=== PATIENT | male | born 1965 | race Caucasian/White ===

== ENCOUNTER 2017-10-24 17:13 | Emergency (ER) | payer BC ==
[2017-10-24 18:38] LABS: ABS Basophils 0.1 10^3/ul (0-0.2); ABS Eosinophils 0.2 10^3/ul (0-0.6); ABS Lymphocytes 1.1 10^3/ul (1.0-4.8); ABS Neutrophils 4.3 10^3/ul (1.5-7.7); ABS Nucleated RBC 0 10^3/ul; Hematocrit 45 % (42-52); Hemoglobin 15.5 g/dl (14.0-18.0); Lymphocyte % 16.7 % (25-47); Mean Corpuscular HGB Conc 34 g/dl (31-36); Mean Corpuscular Hemoglobin 36 pg (27-31); Mean Corpuscular Volume 104 fL (80-94); Mean Platelet Volume 6.6 um3 (7.4-10.4); Nucleated Red Blood Cells % 0; Platelet Count 209 10^3/ul (150-450); Red Blood Count 4.37 10^6/ul (4.0-5.4); Red Cell Distribution Width 14 % (10.5-15); White Blood Count 6.7 10^3/ul (3.5-10.8)
[2017-10-24 18:49] LABS: INR 0.97 (0.77-1.02)
[2017-10-24 18:57] LABS: EGFR Non-African American 87.5 (>60)
[2017-10-24] MEDS ORDERED: Rivaroxaban TAB(*) 15 MG PO ONE (19:19)
--- NOTE | 2017-10-24 19:28 | ED ---
Jerson Sepulveda Stephanie, scribed for Ceasar Subramanian MD on 10/24/17 at 1853 . Lower Extremity - HPI Summary HPI Summary: The pt is a 52 y/o M presenting to the ED with c/o bilateral LE edema that began a few months ago. Symptoms include bilateral LE erythema. He denies SOB, CP and abd pain. The pt states he has had chronic L ankle problems. - History of Current Complaint Chief Complaint: EDExtremityLower Stated Complaint: SWELLING OF BOTH LEGS Time Seen by Provider: 10/24/17 18:32 Hx Obtained From: Patient Onset/Duration: Still Present Severity Currently: Mild Pain Intensity: 0 Pain Scale Used: 0-10 Numeric Timing: Constant Location: Is Discrete @ - LE bilaterally Associated Signs And Symptoms: Positive: Swelling, Redness. Negative: Abdominal Pain Aggravating Factor(s): Nothing Alleviating Factor(s): Nothing Able to Bear Weight: Yes - Allergies/Home Medications Allergies/Adverse Reactions: Allergies Allergy/AdvReac Type Severity Reaction Status Date / Time No Known Allergies Allergy Verified 10/24/17 17:18 PMH/Surg Hx/FS Hx/Imm Hx Endocrine/Hematology History: Denies: Hx Diabetes Cardiovascular History: Reports: Hx Hypertension Denies: Hx Congestive Heart Failure History: Denies: Hx Renal Disease Sensory History: Reports: Hx Contacts or Glasses Opthamlomology History: Reports: Hx Contacts or Glasses EENT History: Denies: Hx Deafness - Surgical History Surgery Procedure, Year, and Place: NONE Infectious Disease History: No Infectious Disease History: Denies: Traveled Outside the [place] in Last 30 Days - Family History Known Family History: Negative: Renal Disease - Social History Occupation: Employed Part-time Lives: Alone Alcohol Use: Occasionally Hx Substance Use: No Substance Use Type: Reports: None Hx Tobacco Use: No Smoking Status (MU): Never Smoked Tobacco Have You Smoked in the Last Year: No Review of Systems Negative: Fever Negative: Chest Pain Negative: Shortness Of Breath Negative: Abdominal Pain Positive: Edema - bilateral LE Positive: Other - bilateral LE erythema All Other Systems Reviewed And Are Negative: Yes Physical Exam - Summary Physical Exam Summary: General: well-appearing, no pain distress Skin: warm, bilateral LE erythema, dry Head: normal Eyes: EOMI, DEANGELO ENT: normal Neck: supple, nontender Respiratory: CTA, breath sounds present Cardiovascular: RRR Abdomen: soft, nontender Bowel: present Musculoskeletal: strength/ROM intact, bilateral pedal edema Neurological: normal, sensory/motor intact, A&O x3 Psychological: affect/mood appropriate Triage Information Reviewed: Yes Vital Signs On Initial Exam: Initial Vitals Temp Pulse Resp BP Pulse Ox 98.1 F 87 16 176/117 97 10/24/17 17:15 10/24/17 17:15 10/24/17 17:15 10/24/17 17:15 10/24/17 17:15 Vital Signs Reviewed: Yes Diagnostics - Vital Signs Vital Signs Temp Pulse Resp BP Pulse Ox 10/24/17 17:15 98.1 F 87 16 176/117 97 - Laboratory Lab Results: Lab Results 10/24/17 Range/Units 18:31 WBC 6.7 (3.5-10.8) 10^3/ul RBC 4.37 (4.0-5.4) 10^6/ul Hgb 15.5 (14.0-18.0) g/dl Hct 45 (42-52) % MCV 104 H (80-94) fL MCH 36 H (27-31) pg MCHC 34 (31-36) g/dl RDW 14 (10.5-15) % Plt Count 209 (150-450) 10^3/ul MPV 6.6 L (7.4-10.4) um3 Neut % (Auto) 63.7 (38-83) % Lymph % (Auto) 16.7 L (25-47) % Dundy % (Auto) 15.7 H (0-7) % Eos % (Auto) 3.0 (0-6) % Baso % (Auto) 0.9 (0-2) % Absolute Neuts (auto) 4.3 (1.5-7.7) 10^3/ul Absolute Lymphs (auto) 1.1 (1.0-4.8) 10^3/ul Absolute Monos (auto) 1.0 H (0-0.8) 10^3/ul Absolute Eos (auto) 0.2 (0-0.6) 10^3/ul Absolute Basos (auto) 0.1 (0-0.2) 10^3/ul Absolute Nucleated RBC 0 10^3/ul Nucleated RBC % 0 Result Diagrams: 10/24/17 18:31 10/24/17 18:31 Lab Statement: Any lab studies that have been ordered have been reviewed, and results considered in the medical decision making process. Lower Extremity Course/Dx - Course Course Of Treatment: DISCUSSED RESULTS WITH THE PATIENT. HE WAS ON XARELTO IN THE PAST. WE DISCUSSED CTA CHEST. THE PATIENT DECLINED. HE HAS NO CHEST PAIN AND DENIES SOB. HR IN THE 90'S. F/U PMD; RETURN IF WORSE. - Diagnoses Provider Diagnoses: DVT (deep venous thrombosis) Discharge - Sign-Out/Discharge Documenting (check all that apply): Discharge/Admit/Transfer - Discharge Plan Condition: Stable Disposition: HOME Prescriptions: Rivaroxaban TAB(*) [Xarelto 15 mg(*)] 15 mg PO BID #41 tab Patient Education Materials: Deep Vein Thrombosis (ED) Referrals: Daljit Ortega MD [Primary Care Provider] - Additional Instructions: FOLLOW UP WITH YOUR PRIMARY CARE DOCTOR TOMORROW. RETURN TO THE EMERGENCY DEPARTMENT FOR ANY WORSENING OF YOUR CONDITION; CHEST PAIN, SHORTNESS OF BREATH, FEVER, YOU FEEL ILL OR QUESTIONS OR CONCERNS. - Billing Disposition and Condition Condition: STABLE Disposition: HOME The documentation as recorded by the Jerson mckinnon Stephanie accurately reflects the service I personally performed and the decisions made by me, Ceasar Subramanian MD.
[2017-10-24 19:35] VITALS: BP 171/110
== END 2017-10-24 19:45 | disposition home or self-care (01) ==
LOC: ED 17:13
DX: I82.403 Acute embolism and thrombosis of unspecified deep veins of lower extremity, bilateral (principal); L53.9 Erythematous condition, unspecified; I10 Essential (primary) hypertension
CPT/HCPCS: 36415; 80053; 85025; 85610; 85730; 99283

== ENCOUNTER 2017-11-15 14:36 | Emergency (ER) | payer BC ==
[2017-11-15 15:03] VITALS: BP 157/102
--- NOTE | 2017-11-15 16:21 | UC ---
Cinthya Sepulveda Emily, scribed for Ceasar Subramanian MD on 11/15/17 at 1540 . Lower Extremity/Ankle HPI - HPI Summary HPI Summary: This patient is a 52 year old M presenting to urgent care with a chief complaint of bilateral lower extremity edema that is chronic but worsened significantly this afternoon [employer]. The patient rates the pain 0/10 in severity. Symptoms aggravated by nothing. Symptoms alleviated by nothing. Patient reports elevated blood pressure and fluid discharge from the skin on the bilateral lower legs. Patient denies SOB, CP, abd pain, urinary symptoms, and bowel symptoms. Pt reports a history of blood clots in both lower extremities, and is currently on Xarelto for these. Medications reviewed. Allergies reviewed. - History of Current Complaint Chief Complaint: UCGeneralIllness Stated Complaint: HIGH BLOOD PRESSURE Time Seen by Provider: 11/15/17 15:08 Hx Obtained From: Patient Onset/Duration: Sudden Onset, Lasting Hours, Still Present Severity Initially: Mild Severity Currently: Mild Pain Intensity: 0 Pain Scale Used: 0-10 Numeric Aggravating Factor(s): Nothing Alleviating Factor(s): Nothing Able to Bear Weight: Yes - Allergies/Home Medications Allergies/Adverse Reactions: Allergies Allergy/AdvReac Type Severity Reaction Status Date / Time No Known Allergies Allergy Verified 11/15/17 14:38 Home Medications: Home Medications Rivaroxaban TAB(*) [Xarelto 15 mg(*)] 20 mg PO BID 11/15/17 [History Confirmed 11/15/17] PMH/Surg Hx/FS Hx/Imm Hx Previously Healthy: No Cardiovascular History: Deep Vein Thrombosis GI/ History: Other Other GI/ History: Negative renal disease - Surgical History Surgical History: None Surgery Procedure, Year, and Place: NONE - Family History Known Family History: Negative: Renal Disease - Social History Occupation: Employed Full-time Lives: Alone Alcohol Use: Weekly Substance Use Type: None Smoking Status (MU): Never Smoked Tobacco Have You Smoked in the Last Year: No - Immunization History Most Recent Influenza Vaccination: NEVER Most Recent Tetanus Shot: UNSURE Most Recent Pneumonia Vaccination: NEVER Review of Systems Skin: Other - Positive fluid discharge from skin on bilateral lower legs Respiratory: Other - Negative SOB Cardiovascular: Other - Positive elevated BP. Negative CP Gastrointestinal: Other - Negative abd pain and bowel symptoms Genitourinary: Negative Musculoskeletal: Edema All Other Systems Reviewed And Are Negative: Yes Physical Exam - Summary Physical Exam Summary: General: well-appearing, no pain distress Skin: warm, color reflects adequate perfusion. Clear fluid leakage from the left leg. Erythema both lower legs. Head: normal Eyes: EOMI, DEANGELO ENT: normal Neck: supple, nontender Respiratory: CTA, breath sounds present Cardiovascular: RRR Abdomen: soft, nontender Bowel: present Musculoskeletal: Bilateral pedal edema, left worse than right Neurological: sensory/motor intact, A&O x3. Mild baseline tremor in both Psychological: affect/mood appropriate Triage Information Reviewed: Yes Vital Signs: Initial Vital Signs Temp 98.1 F 11/15/17 14:39 Pulse 96 11/15/17 14:39 Resp 18 11/15/17 14:39 BP 171/109 11/15/17 14:39 Pulse Ox 99 11/15/17 14:39 Vital Signs Reviewed: Yes Re-Evaluation - Re-Evaluation First Eval Re-Evaluation Time: 15:21 Change: Unchanged Comment: Discussed plan of care with the patient Lower Extremity Course/Dx - Course Course Of Treatment: PATIENT REPORTS THE B/L PEDAL EDEMA HAS GREATLY INCREASED OVER THE LAST FEW HOURS. IT IS WEEPING. TO FULLY EVALUATE KIDNEY AND LIVER FUNCTION AND FOR A TIMELY EVALUATION, I RECOMMENDED THE PATIENT GO [facility] EMERGENCY [facility]PART[facility] FOR FURTHER EVALUATION AND CARE. HE AGREED AND WILL DRIVE HIMSELF. - Differential Dx/Diagnosis Provider Diagnoses: EDEMA. HYPERTENSION Discharge - Sign-Out/Discharge Documenting (check all that apply): Discharge/Admit/Transfer - TO GO DIRECTLY TO THE EMERGENCY DEPARTMENT - Discharge Plan Condition: Stable Disposition: HOME Patient Education Materials: Leg Edema (ED), Hypertension (ED) Referrals: Daljit Ortega MD [Primary Care Provider] - Additional Instructions: GO DIRECTLY TO THE EMERGENCY DEPARTMENT FOR FURTHER EVALUATION OF YOUR WORSENING PEDAL EDEMA AND HYPERTENSION. - Billing Disposition and Condition Condition: STABLE Disposition: HOME The documentation as recorded by the Cinthya mckinnon Emily accurately reflects the service I personally performed and the decisions made by me, Ceasar Subramanian MD.
== END 2017-11-15 15:25 | disposition home or self-care (01) ==
LOC: UCEAST 14:36
DX: I10 Essential (primary) hypertension (principal); R60.9 Edema, unspecified; Z79.01 Long term (current) use of anticoagulants; Z86.718 Personal history of other venous thrombosis and embolism
CPT/HCPCS: 99212; G0463

== ENCOUNTER 2017-11-15 15:51 | Emergency (ER) | payer BC ==
[2017-11-15] MEDS ORDERED: Labetalol IV* 5 MG/ML 20 ML VIAL IV PUSH ONE ×2 (17:55→20:29)
--- NOTE | 2017-11-15 18:23 | RAD ---
HISTORY: Hypertension COMPARISONS: None relevant VIEWS: 1: frontal portable view of the chest at 6:10 PM FINDINGS: LINES AND TUBES: None. CARDIOMEDIASTINAL SILHOUETTE: The cardiomediastinal silhouette is normal for portable technique. PLEURA: The costophrenic angles are sharp. No pleural abnormalities are noted. LUNG PARENCHYMA: The lungs are clear. ABDOMEN: The upper abdomen is clear. There is no subphrenic gas. BONES AND SOFT TISSUES: No bone or soft tissue abnormalities are noted. IMPRESSION: NO ACTIVE CARDIOPULMONARY DISEASE.
[2017-11-15 18:49] LABS: Hematocrit 45 % (42-52); Hemoglobin 16.3 g/dl (14.0-18.0); Mean Corpuscular HGB Conc 37 g/dl (31-36); Mean Corpuscular Hemoglobin 38 pg (27-31); Mean Corpuscular Volume 104 fL (80-94); Mean Platelet Volume 8.5 um3 (7.4-10.4); Platelet Count 129 10^3/ul (150-450); Red Blood Count 4.27 10^6/ul (4.0-5.4); Red Cell Distribution Width 15 % (10.5-15); White Blood Count 10.7 10^3/ul (3.5-10.8)
[2017-11-15] MEDS ORDERED: Furosemide IV* 10 MG/ML VIAL (40 MG) IV SLOW PU ONE (19:30)
[2017-11-15 20:26] VITALS: BP 171/113
[2017-11-15 20:30] LABS: EGFR Non-African American 90.9 (>60)
[2017-11-15 20:43] LABS: Urine Appearance Clear; Urine Blood Negative (Negative); Urine Color Yellow; Urine Ketones Negative (Negative); Urine Protein Negative (Negative); Urine Urobilinogen Negative (Negative)
[2017-11-16 09:10] LABS: Monocytes % 4 % (0-7)
--- NOTE | 2017-11-16 21:08 | ED ---
Catherine Sepulveda Rebecca, scribed for Tez Guaman MD on 11/15/17 at 1801 . Hypertension - HPI Summary HPI Summary: Pt is a 52 y/o M referred from [facility] who presents to ED c/o acute on chronic bilateral LE edema and elevated BP. Pt reports that upon waking up, he was asymptomatic. Throughout the course of the day, beginning at 0900, his legs gradually began to swell. Upon noticing it, he took his BP which was 189/112. Denies CP, SOB, N/V, ANGULO, dizziness. Notes that his legs are chronically swollen as a result of chronic DVT, but this is worse than usual. PMHx HTN - not on medication. Is on Xarelto. - History of Current Complaint Chief Complaint: EDHypertension Stated Complaint: HIGH BP Time Seen by Provider: 11/15/17 17:55 Hx Obtained From: Patient Onset/Duration: Started Hours Ago, Still Present Aggravating Factor(s): Nothing Alleviating Factor(s): Nothing Associated Signs & Symptoms: Other: - Bilateral edema - Allergies/Home Medications Allergies/Adverse Reactions: Allergies Allergy/AdvReac Type Severity Reaction Status Date / Time No Known Allergies Allergy Verified 11/15/17 14:38 Home Medications: Home Medications Rivaroxaban TAB(*) [Xarelto 20 mg] 20 mg PO BID 11/15/17 [History Confirmed ] PMH/Surg Hx/FS Hx/Imm Hx Endocrine/Hematology History: Denies: Hx Diabetes Cardiovascular History: Reports: Hx Deep Vein Thrombosis, Hx Hypertension - hx, was taken off meds Denies: Hx Congestive Heart Failure History: Denies: Hx Renal Disease Sensory History: Reports: Hx Contacts or Glasses Denies: Hx Deafness Opthamlomology History: Reports: Hx Contacts or Glasses - Surgical History Surgery Procedure, Year, and Place: NONE Infectious Disease History: No Infectious Disease History: Denies: Traveled Outside the [place] in Last 30 Days - Family History Known Family History: Negative: Renal Disease - Social History Alcohol Use: Weekly Hx Substance Use: No Substance Use Type: Reports: None Hx Tobacco Use: No Smoking Status (MU): Never Smoked Tobacco Have You Smoked in the Last Year: No Review of Systems Positive: Other - Elevated BP Negative: Chest Pain Negative: Shortness Of Breath Negative: Vomiting, Nausea Positive: Edema Neurological: Other - NEGATIVE: Dizziness Negative: Headache All Other Systems Reviewed And Are Negative: Yes Physical Exam - Summary Physical Exam Summary: VITAL SIGNS: Reviewed. GENERAL: Patient is a well-developed and nourished male who is lying comfortable in the stretcher. Patient is not in any acute respiratory distress. HEAD AND FACE: No signs of trauma. No ecchymosis, hematomas or skull depressions. No sinus tenderness. EYES: PERRLA, EOMI x 2, No injected conjunctiva, no nystagmus. EARS: Hearing grossly intact. Ear canals and tympanic membranes are within normal limits. MOUTH: Oropharynx within normal limits. NECK: Supple, trachea is midline, no adenopathy, no JVD, no carotid bruit, no c- spine tenderness, neck with full ROM. CHEST: Symmetric, no tenderness at palpation LUNGS: Clear to auscultation bilaterally. No wheezing or crackles. CVS: Regular rate and rhythm, S1 and S2 present, no murmurs or gallops appreciated. ABDOMEN: Soft, non-tender. No signs of distention. No rebound no guarding, and no masses palpated. Bowel sounds are normal. EXTREMITIES: Bilateral LE edema 4+, FROM in all major joints, no cyanosis or clubbing. NEURO: Alert and oriented x 3. No acute neurological deficits. Speech is normal and follows commands. SKIN: Dry and warm Triage Information Reviewed: Yes Vital Signs On Initial Exam: Initial Vitals Temp Pulse Resp BP Pulse Ox 98.3 F 102 20 174/115 96 11/15/17 15:55 11/15/17 15:55 11/15/17 15:55 11/15/17 15:55 11/15/17 15:55 Vital Signs Reviewed: Yes Diagnostics - Vital Signs Vital Signs Temp Pulse Resp BP Pulse Ox 11/15/17 15:55 98.3 F 102 20 174/115 96 - Laboratory Lab Results: Lab Results 11/15/17 11/15/17 11/15/17 Range/Units 18:15 18:15 18:15 WBC 10.7 (3.5-10.8) 10^3/ul RBC 4.27 (4.0-5.4) 10^6/ul Hgb 16.3 (14.0-18.0) g/dl Hct 45 (42-52) % MCV 104 H (80-94) fL MCH 38 H (27-31) pg MCHC 37 H (31-36) g/dl RDW 15 (10.5-15) % Plt Count 129 L (150-450) 10^3/ul MPV 8.5 (7.4-10.4) um3 Neut % (Auto) 26.9 L (38-83) % Lymph % (Auto) 65.8 H (25-47) % [place] % (Auto) 5.3 (0-7) % Eos % (Auto) 0.4 (0-6) % Baso % (Auto) 1.6 (0-2) % Absolute Neuts (auto) 2.9 (1.5-7.7) 10^3/ul Absolute Lymphs (auto) 7.0 H (1.0-4.8) 10^3/ul Absolute Monos (auto) 0.6 (0-0.8) 10^3/ul Absolute Eos (auto) 0 (0-0.6) 10^3/ul Absolute Basos (auto) 0.2 (0-0.2) 10^3/ul Absolute Nucleated RBC 0 10^3/ul Nucleated RBC % 0.2 Sodium (139-145) mmol/L Potassium Chloride (101-111) mmol/L Carbon Dioxide (22-32) mmol/L Anion Gap (2-11) mmol/L BUN (6-24) mg/dL Creatinine (0.67-1.17) mg/dL Est GFR ( Amer) (>60) Est GFR (Non-Af Amer) (>60) BUN/Creatinine Ratio (8-20) Glucose (70-100) mg/dL Calcium (8.6-10.3) mg/dL Total Bilirubin (0.2-1.0) mg/dL AST ALT (7-52) U/L Alkaline Phosphatase (34-104) U/L Troponin I (<0.04) ng/mL B-Natriuretic Peptide 39 ( - 100) pg/mL Total Protein (6.4-8.9) g/dL Albumin (3.2-5.2) g/dL Globulin (2-4) g/dL Albumin/Globulin Ratio (1-3) Triglycerides Cholesterol LDL Cholesterol HDL Cholesterol TSH Urine Color Yellow Urine Appearance Clear Urine pH 5.0 (5-9) Ur Specific [place] 1.010 (1.010-1.030) Urine Protein Negative (Negative) Urine Ketones Negative (Negative) Urine Blood Negative (Negative) Urine Nitrate Negative (Negative) Urine Bilirubin Negative (Negative) Urine Urobilinogen Negative (Negative) Ur Leukocyte Esterase Negative (Negative) Urine Glucose Negative (Negative) Urine Ascorbic Acid * A (Negative) 11/15/17 Range/Units 19:26 WBC (3.5-10.8) 10^3/ul RBC (4.0-5.4) 10^6/ul Hgb (14.0-18.0) g/dl Hct (42-52) % MCV (80-94) fL MCH (27-31) pg MCHC (31-36) g/dl RDW (10.5-15) % Plt Count (150-450) 10^3/ul MPV (7.4-10.4) um3 Neut % (Auto) (38-83) % Lymph % (Auto) (25-47) % [place] % (Auto) (0-7) % Eos % (Auto) (0-6) % Baso % (Auto) (0-2) % Absolute Neuts (auto) (1.5-7.7) 10^3/ul Absolute Lymphs (auto) (1.0-4.8) 10^3/ul Absolute Monos (auto) (0-0.8) 10^3/ul Absolute Eos (auto) (0-0.6) 10^3/ul Absolute Basos (auto) (0-0.2) 10^3/ul Absolute Nucleated RBC 10^3/ul Nucleated RBC % Sodium 124 L (139-145) mmol/L Potassium TNP Chloride 90 L (101-111) mmol/L Carbon Dioxide 27 (22-32) mmol/L Anion Gap 7 (2-11) mmol/L BUN 13 (6-24) mg/dL Creatinine 0.88 (0.67-1.17) mg/dL Est GFR ( Amer) 117.0 (>60) Est GFR (Non-Af Amer) 90.9 (>60) BUN/Creatinine Ratio 14.8 (8-20) Glucose 68 L (70-100) mg/dL Calcium 7.8 L (8.6-10.3) mg/dL Total Bilirubin 2.60 H (0.2-1.0) mg/dL AST TNP ALT 80 H (7-52) U/L Alkaline Phosphatase 151 H (34-104) U/L Troponin I 0.00 (<0.04) ng/mL B-Natriuretic Peptide ( - 100) pg/mL Total Protein 6.0 L (6.4-8.9) g/dL Albumin 3.4 (3.2-5.2) g/dL Globulin 2.6 (2-4) g/dL Albumin/Globulin Ratio 1.3 (1-3) Triglycerides Pending Cholesterol Pending LDL Cholesterol Pending HDL Cholesterol Pending TSH Pending Urine Color Urine Appearance Urine pH (5-9) Ur Specific [place] (1.010-1.030) Urine Protein (Negative) Urine Ketones (Negative) Urine Blood (Negative) Urine Nitrate (Negative) Urine Bilirubin (Negative) Urine Urobilinogen (Negative) Ur Leukocyte Esterase (Negative) Urine Glucose (Negative) Urine Ascorbic Acid (Negative) Result Diagrams: 11/15/17 18:15 11/15/17 19:26 Lab Statement: Any lab studies that have been ordered have been reviewed, and results considered in the medical decision making process. - Radiology CXR Xray Interpretation: No Acute Changes - NO ACTIVE CARDIOPULMONARY DISEASE. ED physician reviewed this report. Radiology Interpretation Completed By: Radiologist - EKG 1839 Cardiac Rate: NL - 83 bpm EKG Rhythm: Sinus Rhythm EKG Interpretation: No ST elevations. Q waves in leads III and aVF Re-Evaluation - Re-Evaluation First Eval Re-Evaluation Time: 20:35 Comment: Pt refuses admission. Had a long conversation that he may have an AK or stroke. Refuses to stay, is signing out AMA. Hypertension Course/Dx - Course Assessment/Plan: This is a 53-year-old male who presents to the emergency department with a chief complaint of having increased blood pressure and bilateral lower extremity edema. The patient is not taking any medications for hypertension. Patients past medical history significant for hypertension, DVT , pulmonary embolism on Xarelto. The patient was given Labetalol 20 mg IV and his blood pressure is still increased. She was also given Lasix 40 mg IV. Lab reported that the patients blood is so lipemic that they unable to get a CMP. They tried 3 times to get results but they unable. In the last 12 the patient s sodium is 124, troponin 0.00. The patient continues to be alert and oriented 3. Therefore believe that the patients hyponatremia is chronic. The CBC is within normal limits. Patient continues to be hypertensive therefore the patient was given another dose of labetalol. I discussed the findings and test results with the patient and the need for admission. The patient refused. I extensively discussed with the patient the benefits and risk of leaving AMA. I also discussed the alternatives to leaving AMA, however, the patient still insist to leave the hospital AMA.. The primary nurse and the charge nurse also strongly recommended that the patient should not leave AMA. Patient understands the risk of leaving AMA, which includes but is not restricted to . Patient is Alert and oriented times three and patient verbalizes understanding. Patient has full capacity and is cognitively intact. Patient signed the AMA form. Patient was also advised to return to ED if he changes his mind or if the symptoms worsen or other symptoms appear. Patient understands and agrees - Diagnoses Provider Diagnoses: Uncontrolled hypertension, Dyslipidemia, DVT (deep venous thrombosis), Pulmonary embolism, Bilateral lower extremity edema Discharge - Sign-Out/Discharge Documenting (check all that apply): Discharge/Admit/Transfer - AMA - Discharge Plan Condition: Stable Disposition: AGAINST MEDICAL ADVICE Prescriptions: Furosemide TAB* [Lasix TAB*] 20 mg PO DAILY #15 tab Labetalol TAB* [Trandate TAB*] 100 mg PO DAILY #15 tab Referrals: Daljit Ortega MD [Primary Care Provider] - - Billing Disposition and Condition Condition: STABLE Disposition: AMA The documentation as recorded by the Catherine mckinnon Rebecca accurately reflects the service I personally performed and the decisions made by me, Tez Guaman MD.
== END 2017-11-15 20:55 | disposition left against medical advice (07) ==
LOC: ED 15:51
DX: I10 Essential (primary) hypertension (principal); E78.5 Hyperlipidemia, unspecified; R60.0 Localized edema; Z86.718 Personal history of other venous thrombosis and embolism; Z86.711 Personal history of pulmonary embolism; Z79.01 Long term (current) use of anticoagulants; Z53.21 Procedure and treatment not carried out due to patient leaving prior to being seen by health care provider
CPT/HCPCS: 36415; 71045; 80053; 80061; 81003; 83721; 83880; 84443; 84484; 85025; 93005; 96374; 96376; 99283; J1940

== ENCOUNTER 2017-11-16 05:21 | Emergency (ER) | payer BC ==
[2017-11-16 06:30] LABS: INR 2.21 (0.77-1.02)
[2017-11-16 06:31] LABS: Hematocrit 40 % (42-52); Mean Corpuscular HGB Conc 35 g/dl (31-36); Mean Corpuscular Hemoglobin 37 pg (27-31); Mean Corpuscular Volume 105 fL (80-94); Mean Platelet Volume 8.7 um3 (7.4-10.4); Platelet Count 107 10^3/ul (150-450); Red Cell Distribution Width 14 % (10.5-15); White Blood Count 9.2 10^3/ul (3.5-10.8)
--- NOTE | 2017-11-16 06:48 | ED ---
Alfredito Sepulveda Tiffany, scribed for Jac Diaz MD on 11/16/17 at 0607 . Complex/Multi-Sys Presentation - HPI Summary HPI Summary: 52 y/o M presenting to [facility] complains of bilateral leg edema since yesterday. Symptoms aggravated by nothing. Symptoms alleviated by nothing. Reports HTN. Hx blood clots in bilateral knees. Pt takes xarelto. Not on BP medication, but was supposed to begin today. Reports that he drinks 1 glass red wine per day. Patient seen here yesterday for same symptoms. Did not get US yesterday. Patient states that he could not stay yesterday and left AMA. Requesting re- evaluation. - History Of Current Complaint Chief Complaint: EDHypertension Time Seen by Provider: 11/16/17 05:48 Hx Obtained From: Patient Onset/Duration: Lasting Days - yesterday, Still Present Timing: Constant Aggravating Factor(s): Nothing Alleviating Factor(s): Nothing Associated Signs And Symptoms: Positive: Other - HTN - Allergies/Home Medications Allergies/Adverse Reactions: Allergies Allergy/AdvReac Type Severity Reaction Status Date / Time No Known Allergies Allergy Verified 11/16/17 06:08 PMH/Surg Hx/FS Hx/Imm Hx Previously Healthy: No Endocrine/Hematology History: Reports: Other Endocrine/Hematological Disorders - hx blood clots in bilteral knees Denies: Hx Diabetes Cardiovascular History: Reports: Hx Hypertension - hx, was taken off meds Denies: Hx Congestive Heart Failure History: Denies: Hx Renal Disease Sensory History: Reports: Hx Contacts or Glasses Denies: Hx Deafness Opthamlomology History: Reports: Hx Contacts or Glasses - Surgical History Surgery Procedure, Year, and Place: NONE - Immunization History Date of Tetanus Vaccine: unk Date of Influenza Vaccine: nonr Infectious Disease History: No Infectious Disease History: Denies: Traveled Outside the [place] in Last 30 Days - Family History Known Family History: Negative: Renal Disease - Social History Alcohol Use: Daily Alcohol Amount: 1 glass red wine daily Hx Substance Use: No Substance Use Type: Reports: None Hx Tobacco Use: Yes Smoking Status (MU): Heavy Every Day Tobacco Smoker Have You Smoked in the Last Year: No Review of Systems Positive: Other - HTN Positive: Edema - bilteral leg All Other Systems Reviewed And Are Negative: Yes Physical Exam - Summary Physical Exam Summary: VITAL SIGNS: Reviewed. GENERAL: Patient is a well-developed and nourished male who is lying comfortable in the stretcher. Patient is not in any acute respiratory distress. HEAD AND FACE: No signs of trauma. No ecchymosis, hematomas or skull depressions. No sinus tenderness. EYES: PERRLA, EOMI x 2, No injected conjunctiva, no nystagmus. EARS: Hearing grossly intact. Ear canals and tympanic membranes are within normal limits. MOUTH: Oropharynx within normal limits. NECK: Supple, trachea is midline, no adenopathy, no JVD, no carotid bruit, no c- spine tenderness, neck with full ROM. CHEST: Symmetric, no tenderness at palpation LUNGS: Clear to auscultation bilaterally. No wheezing or crackles. CVS: Regular rate and rhythm, S1 and S2 present, no murmurs or gallops appreciated. ABDOMEN: Soft, non-tender. No signs of distention. No rebound no guarding, and no masses palpated. Bowel sounds are normal. EXTREMITIES: +2 bilateral pedal edema. Pt has mild tremor with outstretch of hands. NEURO: Alert and oriented x 3. No acute neurological deficits. Speech is normal and follows commands. SKIN: Chronic skin changes Triage Information Reviewed: Yes Vital Signs On Initial Exam: Initial Vitals Temp Pulse Resp BP Pulse Ox 97.3 F 82 20 146/95 98 11/16/17 05:23 11/16/17 05:23 11/16/17 05:23 11/16/17 05:23 11/16/17 05:23 Vital Signs Reviewed: Yes Diagnostics - Vital Signs Vital Signs Temp Pulse Resp BP Pulse Ox 11/16/17 05:23 97.3 F 82 20 146/95 98 - Laboratory Lab Statement: Any lab studies that have been ordered have been reviewed, and results considered in the medical decision making process. Complex Multi-Symp Course/Dx Course Of Treatment: 52 y/o M presenting to [facility] complains of bilateral leg edema since yesterday. Patient will be signed out to Dr. Osullivan, awaiting ultrasound and dispo plan. - Diagnoses Provider Diagnoses: Lower extremity edema Discharge - Sign-Out/Discharge Documenting (check all that apply): Sign-Out Patient Signing out patient TO: Kurt Osullivan - Discharge Plan Referrals: Pachikara,Daljit, MD [Primary Care Provider] - The documentation as recorded by the Alfredito mckinnon Tiffany accurately reflects the service I personally performed and the decisions made by me, Jac Diaz MD.
[2017-11-16 06:54] LABS: EGFR Non-African American 94.7 (>60)
[2017-11-16 07:19] LABS: Monocytes % 6 % (0-7)
[2017-11-16 08:42] LABS: Urine Appearance Clear; Urine Blood Negative (Negative); Urine Color Yellow; Urine Ketones Negative (Negative); Urine Protein Negative (Negative); Urine Specific Gravity 1.003 (1.010-1.030); Urine Urobilinogen Positive (Negative)
--- NOTE | 2017-11-16 09:42 | RAD ---
INDICATION: Bilateral lower extremity edema. Anticoagulated. COMPARISON: October 24, 2017 TECHNIQUE: Bernal scale, color Doppler, and spectral analysis of the deep veins of the BILATERAL lower extremities. Vessel compression, phasicity, and augmentation assessed. REPORT: The RIGHT common femoral, great saphenous, profunda femoral, femoral, popliteal, and posterior tibial veins are patent. One of the peroneal veins demonstrates occlusive thrombosis. The remaining peroneal vein is patent. The LEFT common femoral, great saphenous, profunda femoral, femoral, popliteal, and posterior tibial veins are patent. One of the peroneal veins demonstrates occlusive thrombosis. The remaining peroneal vein is patent. Subcutaneous edema at the level of the knee and lower leg. 4.4 x 1.5 x 4.3 cm LEFT popliteal cyst with evidence for synovitis. IMPRESSION: 1. Bilateral below the deep venous thrombosis involving one of the paired peroneal veins in each lower leg. No significant interval change compared with the October 24, 2017 exam. 2. LEFT popliteal cyst.
[2017-11-16 10:01] LABS: EGFR Non-African American 116.5 (>60)
--- NOTE | 2017-11-16 10:45 | ED ---
Catherine Sepulveda Rebecca, manindered for Kurt Osullivan on 11/16/17 at 1015 . Progress - Progress Note Progress Note: Pt was signed out by Dr. Diaz, pending dispo, awaiting Venous Doppler Study. - Results/Orders Results/Orders: Venous Doppler Study: Interpreted by radiologist: 1. Bilateral below the deep venous thrombosis involving one of the paired peroneal veins in each lower leg. No significant interval change compared with the October 24, 2017 exam. 2. LEFT popliteal cyst. ED physician reviewed this report. Re-Evaluation - Re-Evaluation First Eval Re-Evaluation Time: 10:15 Comment: Discussed results with the pt and he does not want to stay in the hospital for the duration of treatment. Course/Dx - Course Course Of Treatment: Pt was signed out by Dr. Diaz, pending dispo, awaiting venous doppler study. Doppler reveals "Bilateral below the deep venous thrombosis involving one of the paired peroneal veins. in each lower leg. No significant interval change compared with the October 24, 2017 exam." Pt refuses to stay in the hospital, instead wants to follow up as an outpatient with his PCP. Pt will be D/C to home with Dx of HTN, DVT, abnormal LFTs, chronic alcoholism, and hyponatremia witha follow up with his PCP. - Diagnoses Provider Diagnoses: DVT (deep venous thrombosis), HTN (hypertension), Abnormal LFTs, Chronic alcoholism, Hyponatremia Discharge - Sign-Out/Discharge Documenting (check all that apply): Discharge/Admit/Transfer - Discharge - Discharge Plan Condition: Stable Disposition: HOME Patient Education Materials: Hyponatremia (ED), Deep Vein Thrombosis (ED), Chronic Hypertension (ED), Alcohol Use Disorder (ED) Referrals: Daljit Ortega MD [Primary Care Provider] - 3 Days Additional Instructions: RETURN TO ED FOR ANY NEW OR WORSENING SYMPTOMS. The documentation as recorded by the Catherine mckinnon Rebecca accurately reflects the service I personally performed and the decisions made by , Kurt Osullivan.
[2017-11-16 10:49] VITALS: BP 142/90
== END 2017-11-16 10:51 | disposition home or self-care (01) ==
LOC: ED 05:21
DX: I82.4Z3 Acute embolism and thrombosis of unspecified deep veins of distal lower extremity, bilateral (principal); M71.22 Synovial cyst of popliteal space [Baker], left knee; I10 Essential (primary) hypertension; Z79.01 Long term (current) use of anticoagulants; Z86.718 Personal history of other venous thrombosis and embolism
CPT/HCPCS: 36415; 80053; 81003; 81015; 83880; 85025; 85060; 85610; 85730; 87086; 93970; 99283

== ENCOUNTER 2018-02-01 07:53 | Emergency (ER) | payer BC ==
[2018-02-01] MEDS ORDERED: Labetalol TAB* 100 MG PO ONE (09:04)
--- NOTE | 2018-02-01 09:23 | RAD ---
Indication: Hypertension, chest pain. Single frontal view of the chest performed at 0911 hours was reviewed. Comparison is made with previous exam dated November 15, 2017. No mediastinal shift is noted. Heart is of normal size and configuration. Lung hong appear clear. IMPRESSION: NO ACTIVE CARDIOPULMONARY DISEASE IS NOTED.
[2018-02-01 09:24] LABS: ABS Basophils 0 10^3/ul (0-0.2); ABS Eosinophils 0 10^3/ul (0-0.6); ABS Lymphocytes 0.9 10^3/ul (1.0-4.8); ABS Neutrophils 5.7 10^3/ul (1.5-7.7); ABS Nucleated RBC 0 10^3/ul; Eosinophil % 0.4 % (0-6); Hematocrit 53 % (42-52); Hemoglobin 17.9 g/dl (14.0-18.0); Lymphocyte % 11.5 % (25-47); Mean Corpuscular HGB Conc 34 g/dl (31-36); Mean Corpuscular Hemoglobin 35 pg (27-31); Mean Corpuscular Volume 102 fL (80-94); Mean Platelet Volume 7.2 um3 (7.4-10.4); Nucleated Red Blood Cells % 0.3; Platelet Count 181 10^3/ul (150-450); Red Blood Count 5.15 10^6/ul (4.00-5.40); Red Cell Distribution Width 14 % (10.5-15); White Blood Count 7.6 10^3/ul (3.5-10.8)
[2018-02-01 09:31] LABS: INR 1.77 (0.77-1.02)
[2018-02-01 09:41] LABS: EGFR Non-African American 112.8 (>60)
[2018-02-01] MEDS ORDERED: Magnesium Sulfate 2 GM IV* 2 GM/50 ML BAG IVPB ONE (10:15)
[2018-02-01 10:23] LABS: Urine Appearance Clear; Urine Blood 2+ (Negative); Urine Color Yellow; Urine Ketones Negative (Negative); Urine Protein Negative (Negative); Urine Red Blood Cell 3+(>10/hpf) (Absent); Urine Specific Gravity 1.013 (1.010-1.030); Urine Urobilinogen Negative (Negative); Urine White Blood Cell 1+(6-10/hpf) (Absent)
--- NOTE | 2018-02-01 10:42 | ED ---
HPI Chest Pain - HPI Summary HPI Summary: Patient presents with blood pressure issues. He reports he accidentally forgot to take his labetalol 100 mg and Lasix 20 mg yesterday morning prior to going to work. Since he was on job and had a longer drive than usual, he admits he was smoking more cigarettes than usual. 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 During these events, he developed jitteriness followed by left arm pain and headache. He "did not feel well" in general and so he left work and went to the pharmacy where he checked his blood pressure. He reports his blood pressure was 200+/120. He went home and took his labetalol and Lasix and admits his blood pressure went down on his home BP monitor however he continued to feel jittery. The pain in the left arm lasted for a about a minute and was not accompanied by chest pain or shortness of breath although he did feel nauseous. He took his medications again this morning however he reports he still feels jittery and like he is "racing". His blood pressure remains elevated above normal for him (he usually 140/95). He also admits his heart rate is not low in the 50s or 60s even on the medication. He reports a history of new onset hypertension and new onset lower extremity edema that started this past spring. He is unsure of the cause but is followed by his PCP. He denies previous issues with hyperlipidemia, CO, diabetes, CHF, peripheral vascular disease, aneurysm. Family history is pertinent for an uncle with CO in his 60's. Otherwise no known cardiac disease. Pt does have h/o 2 embolism events (unprovoked) and so he takes xarelto daily. H/o drinking vodka however since BP issues, has switched to red wine and doesn' t drink as much of this as he doesn't like it. Drinks QOD. Denies illicit drugs. - History of Current Complaint Chief Complaint: EDHypertension Time Seen by Provider: 02/01/18 08:08 Hx Obtained From: Patient Pain Intensity: 0 - Allergy/Home Medications Allergies/Adverse Reactions: Allergies Allergy/AdvReac Type Severity Reaction Status Date / Time No Known Allergies Allergy Verified 02/01/18 07:59 PMH/Surg Hx/FS Hx/Imm Hx Previously Healthy: Yes Endocrine/Hematology History: Reports: Other Endocrine/Hematological Disorders - hx blood clots in bilteral knees Denies: Hx Diabetes Cardiovascular History: Reports: Hx Embolism - LE's, Hx Hypertension - on meds Denies: Hx Cardiac Arrest, Hx Congestive Heart Failure, Hx Myocardial Infarction History: Denies: Hx Renal Disease Musculoskeletal History: Reports: Other Musculoskeletal History - Lt knee injury in HS Sensory History: Reports: Hx Contacts or Glasses Denies: Hx Deafness Opthamlomology History: Reports: Hx Contacts or Glasses - Surgical History Surgery Procedure, Year, and Place: NONE - Immunization History Date of Tetanus Vaccine: unk Date of Influenza Vaccine: nonr Infectious Disease History: No Infectious Disease History: Denies: Traveled Outside the [place] in Last 30 Days - Family History Known Family History: Negative: Renal Disease - Social History Occupation: Employed Full-time Alcohol Use: Daily Alcohol Amount: 1 glass red wine daily Hx Substance Use: No Substance Use Type: Reports: None Hx Tobacco Use: Yes Smoking Status (MU): Heavy Every Day Tobacco Smoker Have You Smoked in the Last Year: No Review of Systems Negative: Fatigue Negative: Photophobia, Blurred Vision, Diplopia Negative: Dental Pain Cardiovascular: Other - "Racing" Negative: Chest Pain Respiratory: Negative Negative: Shortness Of Breath, Cough Positive: Nausea. Negative: Abdominal Pain, Vomiting, Diarrhea Positive: no symptoms reported Musculoskeletal: Negative Skin: Negative Neurological: Negative Psychological: Other - concerned All Other Systems Reviewed And Are Negative: Yes Physical Exam Triage Information Reviewed: Yes Vital Signs On Initial Exam: Initial Vitals Temp Pulse Resp BP Pulse Ox 98.2 F 90 20 173/106 96 02/01/18 07:55 02/01/18 07:55 02/01/18 07:55 02/01/18 07:55 02/01/18 07:55 Vital Signs Reviewed: Yes Appearance: Positive: Well-Nourished - appears to have subtle jitteriness and niya color in general Skin: Positive: Warm, Skin Color Reflects Adequate Perfusion, Dry - LE's w/ erythema and edema - no skin breakdown Head/Face: Positive: Normal Head/Face Inspection Eyes: Positive: Normal, EOMI, Conjunctiva Clear ENT: Positive: Normal ENT inspection, Hearing grossly normal, Pharynx normal - mucosa moist Neck: Positive: Supple - no gross thyromegaly Respiratory/Lung Sounds: Positive: Clear to Auscultation, Breath Sounds Present. Negative: Rales, Rhonchi, Unable to speak in full sentences, Fatigue Cardiovascular: Positive: Pulses are Symmetrical in both Upper and Lower Extremities, Leg Edema Left, Leg Edema Right - equal B/L - pt reports this is "as good as they get", S1, S2. Negative: Murmur, Rub Abdomen Description: Positive: Nontender, Soft Bowel Sounds: Positive: Present Musculoskeletal: Positive: Normal, Strength/ROM Intact Neurological: Positive: Normal, Sensory/Motor Intact, Alert, Oriented to Person Place, Time, CN Intact II-III Psychiatric: Positive: Anxious - but polite, cooperative Diagnostics - Vital Signs Vital Signs Temp Pulse Resp BP Pulse Ox 02/01/18 10:11 87 15 164/108 94 02/01/18 10:05 81 19 166/108 95 02/01/18 10:04 84 15 96 02/01/18 09:24 80 15 168/109 94 02/01/18 09:00 88 19 95 02/01/18 08:54 90 19 179/119 95 02/01/18 08:24 92 20 157/106 95 02/01/18 07:55 98.2 F 90 20 173/106 96 - Laboratory Lab Results: Lab Results 02/01/18 02/01/18 02/01/18 Range/Units 09:15 09:15 09:15 WBC 7.6 (3.5-10.8) 10^3/ul RBC 5.15 (4.00-5.40) 10^6/ul Hgb 17.9 (14.0-18.0) g/dl Hct 53 H (42-52) % MCV 102 H (80-94) fL MCH 35 H (27-31) pg MCHC 34 (31-36) g/dl RDW 14 (10.5-15) % Plt Count 181 (150-450) 10^3/ul MPV 7.2 L (7.4-10.4) um3 Neut % (Auto) 74.2 (38-83) % Lymph % (Auto) 11.5 L (25-47) % [place] % (Auto) 13.4 H (0-7) % Eos % (Auto) 0.4 (0-6) % Baso % (Auto) 0.5 (0-2) % Absolute Neuts (auto) 5.7 (1.5-7.7) 10^3/ul Absolute Lymphs (auto) 0.9 L (1.0-4.8) 10^3/ul Absolute Monos (auto) 1.0 H (0-0.8) 10^3/ul Absolute Eos (auto) 0 (0-0.6) 10^3/ul Absolute Basos (auto) 0 (0-0.2) 10^3/ul Absolute Nucleated RBC 0 10^3/ul Nucleated RBC % 0.3 INR (Anticoag Therapy) (0.77-1.02) APTT (26.0-36.3) seconds Sodium 138 (135-145) mmol/L Potassium 3.5 (3.5-5.0) mmol/L Chloride 97 L (101-111) mmol/L Carbon Dioxide 30 (22-32) mmol/L Anion Gap 11 (2-11) mmol/L BUN 7 (6-24) mg/dL Creatinine 0.73 (0.67-1.17) mg/dL Est GFR ( Amer) 136.5 (>60) Est GFR (Non-Af Amer) 112.8 (>60) BUN/Creatinine Ratio 9.6 (8-20) Glucose 104 H (70-100) mg/dL Lactic Acid 1.4 (0.5-2.0) mmol/L Calcium 9.6 (8.6-10.3) mg/dL Magnesium 1.5 L (1.9-2.7) mg/dL Total Bilirubin 0.70 (0.2-1.0) mg/dL AST 30 (13-39) U/L ALT 23 (7-52) U/L Alkaline Phosphatase 99 (34-104) U/L Troponin I 0.00 (<0.04) ng/mL B-Natriuretic Peptide ( - 100) pg/mL Total Protein 7.8 (6.4-8.9) g/dL Albumin 4.2 (3.2-5.2) g/dL Globulin 3.6 (2-4) g/dL Albumin/Globulin Ratio 1.2 (1-3) TSH 1.54 (0.34-5.60) mcIU/mL Urine Color Urine Appearance Urine pH (5-9) Ur Specific [place] (1.010-1.030) Urine Protein (Negative) Urine Ketones (Negative) Urine Blood (Negative) Urine Nitrate (Negative) Urine Bilirubin (Negative) Urine Urobilinogen (Negative) Ur Leukocyte Esterase (Negative) Urine WBC (Auto) (Absent) Urine RBC (Auto) (Absent) Urine Bacteria (Absent) Urine Glucose (Negative) 02/01/18 02/01/18 02/01/18 Range/Units 09:15 09:15 09:59 WBC (3.5-10.8) 10^3/ul RBC (4.00-5.40) 10^6/ul Hgb (14.0-18.0) g/dl Hct (42-52) % MCV (80-94) fL MCH (27-31) pg MCHC (31-36) g/dl RDW (10.5-15) % Plt Count (150-450) 10^3/ul MPV (7.4-10.4) um3 Neut % (Auto) (38-83) % Lymph % (Auto) (25-47) % [place] % (Auto) (0-7) % Eos % (Auto) (0-6) % Baso % (Auto) (0-2) % Absolute Neuts (auto) (1.5-7.7) 10^3/ul Absolute Lymphs (auto) (1.0-4.8) 10^3/ul Absolute Monos (auto) (0-0.8) 10^3/ul Absolute Eos (auto) (0-0.6) 10^3/ul Absolute Basos (auto) (0-0.2) 10^3/ul Absolute Nucleated RBC 10^3/ul Nucleated RBC % INR (Anticoag Therapy) 1.77 H (0.77-1.02) APTT 38.0 H (26.0-36.3) seconds Sodium (135-145) mmol/L Potassium (3.5-5.0) mmol/L Chloride (101-111) mmol/L Carbon Dioxide (22-32) mmol/L Anion Gap (2-11) mmol/L BUN (6-24) mg/dL Creatinine (0.67-1.17) mg/dL Est GFR ( Amer) (>60) Est GFR (Non-Af Amer) (>60) BUN/Creatinine Ratio (8-20) Glucose (70-100) mg/dL Lactic Acid (0.5-2.0) mmol/L Calcium (8.6-10.3) mg/dL Magnesium (1.9-2.7) mg/dL Total Bilirubin (0.2-1.0) mg/dL AST (13-39) U/L ALT (7-52) U/L Alkaline Phosphatase (34-104) U/L Troponin I (<0.04) ng/mL B-Natriuretic Peptide 22 ( - 100) pg/mL Total Protein (6.4-8.9) g/dL Albumin (3.2-5.2) g/dL Globulin (2-4) g/dL Albumin/Globulin Ratio (1-3) TSH (0.34-5.60) mcIU/mL Urine Color Yellow Urine Appearance Clear Urine pH 8.0 (5-9) Ur Specific [place] 1.013 (1.010-1.030) Urine Protein Negative (Negative) Urine Ketones Negative (Negative) Urine Blood 2+ A (Negative) Urine Nitrate Negative (Negative) Urine Bilirubin Negative (Negative) Urine Urobilinogen Negative (Negative) Ur Leukocyte Esterase Trace A (Negative) Urine WBC (Auto) 1+(6-10/hpf) A (Absent) Urine RBC (Auto) 3+(>10/hpf) A (Absent) Urine Bacteria Absent (Absent) Urine Glucose Negative (Negative) Result Diagrams: 02/01/18 09:15 02/01/18 09:15 Lab Statement: Any lab studies that have been ordered have been reviewed, and results considered in the medical decision making process. Chest Pain Course/Dx - Course Course Of Treatment: Patient presents with blood pressure issues since yesterday. Accompanied symptoms yesterday during exertion included headache, left arm pain, nausea and jitteriness. His blood pressure was found to be 200+ over 120. He had forgotten to take his BP medications that morning so he went home and took this. BP reduced and sx except for [place] and jitteriness resolved. Took BP meds again this morning. He reports his symptoms of headache, left arm pain have resolved yesterday however he continues to feel jittery and his blood pressure remains elevated. Discussed case with Dr. Avila. Cardiac workup was initiated. EKG is normal sinus rhythm without ST elevation, a 86 bpm. first troponin is 0.00. His H&H is unremarkable however his magnesium is low at 1.5. Initially ordered half patient's daily dose of labetalol (50 mg more than 100mg he already took this morning) however pharmacy had not gotten medication to patient upon recheck so magnesium 2 g IV was ordered before waiting on labetolol. Discussed case with Dr. Gtz as there is concern for possible cardiac event yesterday and ongoing blood pressure issues today causing symptoms. Dr. Gtz will address blood pressure issues and resume testing is necessary (ie. stress test, etc). Patient in stable condition at time of transition of care. Critical care: 30mins - Diagnoses Provider Diagnoses: Hypertension, Jittery feeling Discharge - Sign-Out/Discharge Documenting (check all that apply): Patient Departure - Discharge Plan Condition: Stable Disposition: ADMITTED TO [facility] - Billing Disposition and Condition Condition: STABLE Disposition: Admitted to [facility]
[2018-02-01] MEDS ORDERED: Lisinopril TAB* 10 MG PO SCH (11:00)
[2018-02-01 13:11] VITALS: BP 154/105
--- NOTE | 2018-02-01 19:21 | CONS ---
CC: Dr. Ortega* CONSULTATION REPORT: DATE OF CONSULT: 02/01/18 PRIMARY CARE PROVIDER: Dr. Ortega ATTENDING PHYSICIAN: Bill Gtz MD (dictation provided by Jackelin Stover NP) CHIEF COMPLAINT: Feeling jittery. HISTORY OF PRESENT ILLNESS: Mr. 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 The patient states that his symptoms started yesterday. 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 He reports having just a feeling of energy inside of his body that was hard to describe. He denies any chest pain, shortness of breath, nausea, vomiting, diarrhea, abdominal pain, but did report some headache and pain in his arm yesterday to the ED provider. This was associated with his blood pressure being elevated. When he was feeling these symptoms of jitteriness, he did go to [employer] and check his blood pressure and it was noted to be 200 systolically. He realized at that point that he had not taken his usual home medications and returned home to take his furosemide, Xarelto, and labetalol. Within an hour, he rechecked his blood pressure and it was 145/85. He denied feeling any palpitations or chest pain to me. This morning, the patient awoke and continued to feel jittery. He checked his blood pressure and it was 180/100. He felt that he could not go into work and therefore came into the emergency room for evaluation. Mr. Plata states that he drinks red wine on a daily basis. He did not drink last night, but did drink the night before. He is a continued smoker. In the emergency room, Mr. Plata had labs, which were remarkable only for magnesium of 1.5. Potassium was 3.5. His chest x-ray shows no acute process. The EKG shows sinus rhythm with heart rate in his 70s with no evidence of ischemia. Troponin was 0.00. Since being in the ED, his blood pressure has ranged from 170s/100s, it is currently 150/100. This has been after the patient was given lisinopril x1. PAST MEDICAL HISTORY: 1. Hypertension. 2. DVT. 3. PE. MEDICATIONS: 1. Lasix 20 mg p.o. daily. 2. Labetalol 100 mg p.o. daily. 3. Rivaroxaban 20 mg p.o. daily. ALLERGIES: No known drug allergies. FAMILY HISTORY: The patient reports his mother and father are . His mother related to dementia and his father had cancer. SOCIAL HISTORY: The patient is a continued cjpn-v-qavt-a-day smoker. He says he drinks red wine on a daily basis. There is no report of drug use. He says his sister would be his healthcare proxy. REVIEW OF SYSTEMS: A 14-point review of systems completed with Mr. Plata and all of those not mentioned above were negative. PHYSICAL EXAM: Vital Signs: Temperature 98.2, pulse rate 88, respiratory rate 15, O2 saturation 94% on room air, blood pressure 150/100. General: Mr. Plata is lying in the bed. He appears a bit shaky, but is in no acute distress. Neuro: He is alert. He is oriented x3. He moves all extremities equally. There is no facial asymmetry or focal weakness. Extraocular movements are intact. Eyes: The patient has conjunctival erythema bilaterally. He states that "they are always like this." Heart: S1, S2. No murmur, rub, or gallop and regular. Lungs are clear to auscultation bilaterally with no accessory muscle use and good aeration. Abdomen: Soft, nontender with bowel sounds positive x4. Extremities: No cyanosis or edema. Skin: Intact. DIAGNOSTIC STUDIES/LAB DATA: WBC 7.6, hemoglobin 17.9, hematocrit 53, platelet count 181, INR 1.77, sodium 138, potassium 3.5, chloride 97, serum bicarbonate 30, BUN 7, creatinine 0.73, glucose 104, lactic acid 1.4, magnesium 1.5, troponin 0.00, TSH 1.54. Urine shows trace leuk esterase with no bacteria and no nitrate. Chest x-ray as per above as is the EKG. ASSESSMENT: Mr. Plata is a 52-year-old male with past medical history of hypertension and deep vein thrombosis and pulmonary embolus on Eliquis, who presents today to the hospital with symptoms of "feeling jittery." In the emergency room, the patient received lisinopril 10 mg. His blood pressure is now down to 150/100. He states that he is feeling much better. I note that the patient had low magnesium and high MCV. On clinical exam, I questioned whether or not perhaps there is a component of alcoholism contributing to his symptoms and some underlying withdrawal. He states that he did not drink last night, but did drink the night before and these symptoms started yesterday so clearly it is not overt delirium tremens. I have recommended that Mr. Plata can be discharged to home. He does not want to be admitted to the hospital today. He states that he is feeling better. His blood pressure is better controlled. I recommended that he follow up closely with Dr. Ortega. He states he has an appointment in [id number] weeks. I have asked that he call today to see if they would like to move that appointment up for him, but I do not feel that is necessary. He will be started on lisinopril 10 mg p.o. daily in addition to his labetalol and furosemide. I have counseled him about avoiding salt, I have counselled him about increasing his magnesium intake. I have counseled him that he should discuss with Dr. Ortega the potentiality for increasing his Lasix as well as he does continue to have lower extremity edema. Mr. Plata is medically stable for discharge from the emergency room. I have counseled him to return to the ED if he has chest pain, SOB or any other concerning symptoms of his blood pressure is uncontrolled at home. TIME SPENT: Approximately 45 minutes was spent in the consultation of this patient, more than half the time was spent with patient at the bedside reviewing the events leading up to this hospitalization, performing physical examination, reviewing the plan of care. JACKELIN STOVER NP [id number]/CPS #: [id number] BLAINE
== END 2018-02-01 13:08 | disposition home or self-care (01) ==
LOC: ED 07:53
DX: I10 Essential (primary) hypertension (principal); R45.0 Nervousness; R11.0 Nausea; Z86.718 Personal history of other venous thrombosis and embolism; Z79.01 Long term (current) use of anticoagulants; F17.200 Nicotine dependence, unspecified, uncomplicated
CPT/HCPCS: 36415; 71045; 80053; 81003; 81015; 83605; 83735; 83880; 84443; 84484; 85025; 85610; 85730; 87086; 93005; 96365; 99283; A9270-GY; J3475

== ENCOUNTER 2018-08-01 12:51 | Inpatient (IN) | payer BC ==
[2018-08-01] MEDS ORDERED: LORazepam INJ* 2 MG/ML 1 ML VIAL IV PUSH ONE ×2 (12:56→13:49)
[2018-08-01] MEDS ORDERED: LORazepam INJ* 2 MG/ML 1 ML VIAL ONE (13:00)
[2018-08-01] MEDS ORDERED: Thiamine IV* 100 MG, Folic Acid IV* 1 MG, Multiple Vitamin IV ADULT* 10 ML in NS 0.9% 1... IV ONE (13:03)
--- NOTE | 2018-08-01 13:12 | ED ---
Progress - Progress Note Progress Note: I supervised the PA and performed a history and physical exam. Pt is a 53 y/o male brought in by EMS who presents to the ED with conjunctival injection, heavy tremors, agitation, and hypertension. He refutes that he is currently in alcohol withdrawal, and states he was in May 2018. However pt has a heavy history of alcohol abuse and his boss informed EMS that the pt has been drinking vodka heavily. Pt had a similar episode in May 2018. His LE edema is possibly due to liver failure. Appearance: Well appearing, no pain distress Skin: warm, dry, reflects adequate perfusion Head/face: normal Eyes: EOMI, DEANGELO, conjunctival injection ENT: mucous membranes moist Neck: supple, non-tender Respiratory: CTA, breath sounds present Cardiovascular: RRR, pulses symmetrical, LE edema Abdomen: non-tender, soft Bowel Sounds: present Musculoskeletal: normal, strength/ROM intact Neuro: sensory motor intact, A&Ox3, heavy tremors Psych: agitated Pt is admitted to Dr. Crespo for peripheral edema and alcohol withdrawal. Course/Dx - Course Course Of Treatment: Nurse's notes reviewed. Patient presents with heavy agitation, tremor related to heavy alcohol use and subsequent withdrawal. Has history of same. Requires large doses of Ativan here. Also with significant lactic acidosis. ABG pending. Discussed with ICU attending who will accept. Possibility of alcoholic ketoacidosis as well. Patient is improving with Ativan on CIWA scale and will be placed on Precedex. He has received 2 L of IV fluid hydration as well as 2 banana bags. Pending admission to ICU. - Diagnoses Provider Diagnoses: Alcohol withdrawal, Peripheral edema - Critical Care Time Critical Care Time: 30-74 min - CCT is EXCLUSIVE of separately billable procedures. Discharge - Sign-Out/Discharge Documenting (check all that apply): Patient Departure - Admit Patient Received Moderate/Deep Sedation with Procedure: No - Discharge Plan Condition: Critical Disposition: ADMITTED TO [facility] - Billing Disposition and Condition Condition: CRITICAL Disposition: Admitted to [facility] - Attestation Statements Document Initiated by Scribe: Yes Documenting Scribe: Lety Fletcher Provider For Whom Scribe is Documenting (Include Credential): Robert Price MD Scribe Attestation: Lety Sepulveda, scribed for Robert Price MD on 08/01/18 at 1604. Scribe Documentation Reviewed: Yes Provider Attestation: The documentation as recorded by the scribe, Lety Fletcher accurately reflects the service I personally performed and the decisions made by me, Robert Price MD Status of Scribe Document: Viewed
[2018-08-01 13:45] LABS: Hematocrit 44 % (42-52); INR 1.82 (0.77-1.02); Mean Corpuscular HGB Conc 34 g/dl (31-36); Mean Corpuscular Hemoglobin 36 pg (27-31); Mean Corpuscular Volume 106 fL (80-94); Red Blood Count 4.15 10^6/ul (4.00-5.40); Red Cell Distribution Width 14 % (10.5-15); White Blood Count 10.4 10^3/ul (3.5-10.8)
[2018-08-01 14:03] LABS: Troponin I 0.02 ng/mL (<0.04)
--- NOTE | 2018-08-01 14:05 | ED ---
Substance Abuse/Use - HPI Summary HPI Summary: Patient's a 53-year-old male presenting by EMS with tremors, tachycardia, increased BP. Per EMS, the alaniz at patient's work called EMS due to tachycardia, shaking, conjunctival injection and feeling of jitters. Alaniz states patient drinks frequently and is in WD. Patient states he drinks a 1/2 gallon vodka/a handle a day. Patient was treated in the past for same, however was treated for hypertension never treated for tremors or alcohol withdrawal. He is left AMA in the past. - History Of Current Complaint Chief Complaint: EDGeneral Stated Complaint: GENERAL ILLNESS Time Seen by Provider: 08/01/18 12:53 Hx Obtained From: Patient Onset/Duration of Drug/ETOH Abuse: Years Ingestion History: Amount Ingested - 1/2 gallon liquore, Approximate Time Of Ingestion Overdose Characteristics: Oral Timing Of Abuse: Daily Severity Initially: Severe Severity Currently: Severe Character: Fearful, Anxious, Frustrated Aggravating Factor(s): Nothing Alleviating Factor(s): Nothing Associated Signs And Symptoms: Confused, Hallucinating, Paranoid Behavior, Sleep Disturbance, Palpitations, Diaphoretic, Tremulous, Agitated, Nausea, Intentional Ingestion Related Hx: Drug/Alcohol Last Used @ - today - Risk Factor(s) Completed Suicide Risk Factors: Male, White [place] - Allergies/Home Medications Allergies/Adverse Reactions: Allergies Allergy/AdvReac Type Severity Reaction Status Date / Time No Known Allergies Allergy Verified 02/01/18 07:59 PMH/Surg Hx/FS Hx/Imm Hx Previously Healthy: Yes Endocrine/Hematology History: Reports: Other Endocrine/Hematological Disorders - hx blood clots in bilteral knees Denies: Hx Diabetes Cardiovascular History: Reports: Hx Embolism - LE's, Hx Hypertension - on meds Denies: Hx Cardiac Arrest, Hx Congestive Heart Failure, Hx Myocardial Infarction History: Denies: Hx Renal Disease Musculoskeletal History: Reports: Other Musculoskeletal History - Lt knee injury in HS Sensory History: Reports: Hx Contacts or Glasses Denies: Hx Deafness Opthamlomology History: Reports: Hx Contacts or Glasses - Surgical History Surgery Procedure, Year, and Place: NONE - Immunization History Date of Tetanus Vaccine: unk Date of Influenza Vaccine: nonr Hx Pertussis Vaccination: No Immunizations Up to Date: Yes Infectious Disease History: No Infectious Disease History: Denies: Traveled Outside the [place] in Last 30 Days - Family History Known Family History: Negative: Renal Disease - Social History Occupation: Employed Full-time Lives: Alone Alcohol Use: Daily Alcohol Amount: PINT Hx Substance Use: No Substance Use Type: Reports: None Hx Tobacco Use: Yes Smoking Status (MU): Heavy Every Day Tobacco Smoker Have You Smoked in the Last Year: No Review of Systems Positive: Skin Diaphoresis. Negative: Chills Positive: Erythema - conjunctival injection, no blurry vision or double vision Positive: Palpitations. Negative: Chest Pain Negative: Shortness Of Breath, Cough Positive: Nausea. Negative: Abdominal Pain, Vomiting, Diarrhea Genitourinary: Negative Positive: no symptoms reported, see HPI Negative: Arthralgia, Myalgia Negative: Rash, Bruising Positive: Headache, Weakness, Slurred Speech Positive: Anxious - severe All Other Systems Reviewed And Are Negative: Yes Physical Exam Triage Information Reviewed: Yes Vital Signs On Initial Exam: Initial Vitals Resp 25 08/01/18 13:01 Vital Signs Reviewed: Yes Appearance: Positive: Ill-Appearing, Thin, Cachectic Skin: Positive: Diaphoretic - Severe Head/Face: Positive: Normal Head/Face Inspection, Temporal Artery Tenderness Eyes: Positive: Conjunctiva Inflammed ENT: Negative: Pharynx normal, Pharyngeal erythema, Nasal congestion Neck: Positive: Supple, No Lymphadenopathy Respiratory/Lung Sounds: Positive: Clear to Auscultation, Breath Sounds Present Cardiovascular: Positive: Tachycardia - 112, Leg Edema Left - At baseline, Leg Edema Right - At baseline Abdomen Description: Positive: Nontender, Soft Bowel Sounds: Positive: Present Musculoskeletal: Positive: Edema Left, Edema Right Neurological: Positive: Other - Unable to assess gait, slurred speech, patient is oriented to person, place, time Psychiatric: Positive: Anxious - Severe - Everett Coma Scale Best Eye Response: 4 - Spontaneous Best Motor Response: 6 - Obeys Commands Best Verbal Response: 5 - Oriented Coma Scale Total: 15 Diagnostics - Vital Signs Vital Signs Temp Pulse Resp BP Pulse Ox 08/01/18 13:05 99.5 F 105 25 110/71 97 08/01/18 13:01 25 - Laboratory Lab Results: Lab Results 08/01/18 08/01/18 Range/Units 13:32 13:32 WBC 10.4 (3.5-10.8) 10^3/ul RBC 4.15 (4.00-5.40) 10^6/ul Hgb 15.0 (14.0-18.0) g/dl Hct 44 (42-52) % MCV 106 H (80-94) fL MCH 36 H (27-31) pg MCHC 34 (31-36) g/dl RDW 14 (10.5-15) % Plt Count Pending MPV Pending Neut % (Auto) Pending Lymph % (Auto) Pending Crosby % (Auto) Pending Eos % (Auto) Pending Baso % (Auto) Pending Absolute Neuts (auto) Pending Absolute Lymphs (auto) Pending Absolute Monos (auto) Pending Absolute Eos (auto) Pending Absolute Basos (auto) Pending Absolute Nucleated RBC Pending Nucleated RBC % Pending INR (Anticoag Therapy) 1.82 H (0.77-1.02) Result Diagrams: 08/01/18 13:32 08/01/18 13:32 Lab Statement: Any lab studies that have been ordered have been reviewed, and results considered in the medical decision making process. Course/Dx - Course Course Of Treatment: On arrival into the ED, patient is noted to be having severe tremors, even with arms not extended period obvious sweating, appears extremely anxious, complains of headache and is having auditory disturbances. CIWA score on arrival is 36. On arrival to the ED, labs obtained including an alcohol level. 1 L normal saline and one banana bag given. A total of 8 mg Ativan and magnesium given in the ED. Patient continues to have a CIWA score of 26. Patient appears agitated, states he is nauseous with palpitations. He is endorsing sleep disturbance and paranoid behavior. Is endorsing mild hallucinations and states he isnt really confused. Denies any SI or HI. Discussed case with Dr. Del Angel. Dr. Del Angle has requested Precedex drip. Mag 0.8. - Diagnoses Provider Diagnoses: Alcohol withdrawal, Peripheral edema - Physician Notifications Discussed Care Of Patient With: Rhonda Del Angel Instructed by Provider To: Admit As Inpatient - Critical Care Time Critical Care Time: 30-74 min - CCT is EXCLUSIVE of separately billable procedures. Discharge - Sign-Out/Discharge Documenting (check all that apply): Patient Departure Patient Received Moderate/Deep Sedation with Procedure: No - Discharge Plan Condition: Fair Disposition: ADMITTED TO [facility] Referrals: Daljit Ortega MD [Medical Doctor] - - Billing Disposition and Condition Condition: FAIR [facility]position: [facility]
[2018-08-01 14:07] LABS: Albumin 4.2 g/dL (3.2-5.2); Albumin/Globulin Ratio 1.3 (1-3); BUN/Creatinine Ratio 9.8 (8-20); Calcium 9.7 mg/dL (8.6-10.3); EGFR African American 92.4 (>60); EGFR Non-African American 76.4 (>60); Globulin 3.2 g/dL (2-4); Potassium 3.3 mmol/L (3.5-5.0); Total Protein 7.4 g/dL (6.4-8.9)
[2018-08-01 14:09] LABS: Magnesium 0.8 mg/dL (1.9-2.7)
[2018-08-01] MEDS ORDERED: NS 0.9% 1000 ML** 2,000 ML IV ONE (14:11)
[2018-08-01] MEDS ORDERED: Magnesium Sulf 4 GM/100 ML IV* 4,000 MG/100 ML BAG IVPB ONE (14:11)
--- OUTSIDE RECORDS SUMMARY | 2018-08-01 14:11 | XMS REPORT | Continuity of Care Document ---
:1965 External Reference #:[id number] Author Name Miroslava Hamilton Care Team Providers Name Role Phone Daljit Ortega MD Primary Care Physician Unavailable Payers Type Date Identification Numbers Payment Provider Subscriber Effective: Policy Number: [id number] [employer] Armand Marinelli 2015 PayID: [id number] [address] [address] [place] [address] Expires: 2014 Policy Number: [id number] [employer] Armand Marinelli PayID: [id number] [address] [place] [address] Advance Directives Description No Information Available Problems Date Description Provider Status Onset: 07/03/2014 Pulmonary embolism Daljit Ortega M.D. Active Onset: 07/03/2014 Low back pain Daljit Ortega M.D. Active Onset: 07/18/2014 Raised prostate specific antigen Daljit Ortega M.D. Active Onset: 09/26/2014 Tobacco user Daljit Ortega M.D. Active Onset: 10/25/2017 Deep venous thrombosis of lower Parker Arias M.D., FACP Active extremity Note: bilat Onset: 10/25/2017 Alcohol abuse Parker Arias M.D.,FACP Active Onset: 12/07/2017 Essential hypertension Daljit Ortega M.D. Active Onset: 02/12/2018 Lymphedema Daljit Ortega M.D. Active Onset: 02/01/2018 O/E - nervous Jenna Stover N.P. Active Family History Date Family Member(s) Problem(s) Comments Mother Alzheimer's Disease Siblings 2 Social History Type Date Description Comments Sex Unknown Marital Status Single Occupation Currently Working [employer] Tobacco Use Start: Unknown current cigarette smoker Smoking Status Reviewed: 07/19/18 current cigarette smoker ETOH Use 10/25/2017 Consumes 1 quart of liquor per week Tobacco Use Start: Unknown Patient is a current smoker, smokes every day Recreational Drug Use Denies Drug Use Allergies, Adverse Reactions, Alerts Description No Known Drug Allergies Medications Medication Date Status Form Strength Qnty SIG Indications Ordering Provider Labetalol HCL 02/07/ Active Tablets 100mg 60tab 1 by mouth I10 Daljit 2017 s once daily Walker Ortega Furosemide 11/28/ Active Tablets 20mg 30tab 1 by mouth Daljit 2017 s every day Walker Ortega Xarelto 09/24/ Active Tablets 20mg 30tab 1 by mouth Daljit 2014 s every day Shannon (Walker benito after 11/13) Lisinopril / Active Tablets 10mg 30tab 1 by mouth Daljit s every day Walker Ortega Labetalol HCL 11/28/ Hx Tablets 100mg 30tab 1 by mouth Daljit 2017 - s daily Shannon 02/07/ Walker 2018 Betamethasone 10/31/ Hx Cream 0.05% 90gm apply thin R21 Elton Dipropionate 2018 - layer to JEROMY Chanel 12/06/ affected 2018 areas twice daily. Medrol 10/25/ Hx Tablets 4mg 1pak medrol Parker 2018 - philly Arias, 10/31/ as Walker,FACP 2018 directed Fluticasone 08/12/ Hx Suspension 50mcg/Act 48gm 2 sprays H81.10 Elton Propionate 2017 - each JEROMY Chanel 12/06/ nostril 2018 qd. x 2 weeks Meclizine HCL 08/12/ Hx Tablets 25mg 45tab take one H81.10 Elton 2016 - s tablet JEROMY Chanel 10/31/ every 6 2018 hours as needed for dizziness Valsartan 09/26/ Hx Tablets 80mg 30tab once daily 796.2 Daljit 2014 - s Pachika 10/25/ Walker 2018 Tramadol HCL 07/03/ Hx Tablets 50mg 30tab three 724.2 Daljit 2014 - s times a Pachikara 09/26/ day Walker patel 2014 needed No Active 06/25/ Hx Unknown Medications 2014 - 2014 Xarelto / Hx Tablets 15mg 90tab 1 by mouth Unknown - s twice a day with 2014 food for 21 days. Levofloxacin / Hx Tablets 750mg Unknown - 2014 Immunizations CPT Code Status Date Vaccine Reaction Lot # [id number] Given 12/07/2017 Pneumonia Vaccine Pt. tolerated well. No imediate [id number] reaction noted. Vital Signs Date Vital Result Comment 07/19/2018 2:01pm Height 71 inches 5'11" Weight 197.50 lb Heart Rate 106 /min BP Systolic 159 mmHg BP Diastolic 91 mmHg BP Systolic Sitting 140 mmHg Home reading BP Diastolic Sitting 80 mmHg Home reading BP Systolic Recheck 152 mmHg BP Diastolic Recheck 92 mmHg Body Temperature 98.6 F O2 % BldC Oximetry 93 % BMI (Body Mass Index) 27.5 kg/m2 02/12/2018 9:25am Height 71 inches 5'11" Weight 203.00 lb Heart Rate 92 /min BP Systolic 158 mmHg BP Diastolic 104 mmHg O2 % BldC Oximetry 98 % BMI (Body Mass Index) 28.3 kg/m2 02/07/2018 7:48am Height 72 inches 6'0" Weight 204.00 lb Heart Rate 90 /min BP Systolic Sitting 153 mmHg BP Diastolic Sitting 103 mmHg O2 % BldC Oximetry 94 % BMI (Body Mass Index) 27.7 kg/m2 12/07/2017 12:53pm Height 72 inches 6'0" Weight 198.00 lb Heart Rate 74 /min BP Systolic Sitting 124 mmHg BP Diastolic Sitting 86 mmHg Body Temperature 97.9 F O2 % BldC Oximetry 97 % BMI (Body Mass Index) 26.9 kg/m2 10/31/2017 9:57am Height 72 inches 6'0" Weight 197.75 lb Heart Rate 95 /min BP Systolic 160 mmHg BP Diastolic 100 mmHg BP Systolic Recheck 160 mmHg BP Diastolic Recheck 100 mmHg Body Temperature 98.5 F O2 % BldC Oximetry 91 % BMI (Body Mass Index) 26.8 kg/m2 10/25/2017 3:55pm Height 72 inches 6'0" Weight 198.00 lb Heart Rate 102 /min BP Systolic Sitting 170 mmHg BP Diastolic Sitting 100 mmHg Body Temperature 98.6 F O2 % BldC Oximetry 95 % BMI (Body Mass Index) 26.9 kg/m2 10/24/2017 2:19pm Height 72 inches 6'0" Weight 198.00 lb Heart Rate 96 /min BP Systolic 130 mmHg BP Diastolic 82 mmHg O2 % BldC Oximetry 96 % BMI (Body Mass Index) 26.9 kg/m2 08/12/2016 12:53pm Height 72 inches 6'0" Weight 197.50 lb Heart Rate 76 /min BP Systolic 130 mmHg BP Diastolic 90 mmHg Body Temperature 97.6 F O2 % BldC Oximetry 97 % BMI (Body Mass Index) 26.8 kg/m2 09/26/2014 9:00am Height 72 inches 6'0" Weight 203.50 lb Heart Rate 90 /min BP Systolic Sitting 160 mmHg BP Diastolic Sitting 106 mmHg Body Temperature 98.8 F O2 % BldC Oximetry 96 % BMI (Body Mass Index) 27.6 kg/m2 07/18/2014 9:19am Height 72 inches 6'0" Weight 204.50 lb Heart Rate 95 /min BP Systolic Sitting 146 mmHg BP Diastolic Sitting 82 mmHg O2 % BldC Oximetry 96 % BMI (Body Mass Index) 27.7 kg/m2 07/03/2014 1:42pm Height 72 inches 6'0" Weight 205.50 lb Heart Rate 93 /min BP Systolic Sitting 144 mmHg BP Diastolic Sitting 86 mmHg Body Temperature 98.0 F O2 % BldC Oximetry 95 % BMI (Body Mass Index) 27.9 kg/m2 06/25/2014 12:00pm Heart Rate 125 /min BP Systolic Sitting 146 mmHg BP Diastolic Sitting 90 mmHg Body Temperature 98.9 F O2 % BldC Oximetry 93 % Results Test Date Facility Test Result H/L Range Note Laboratory test 02/01/2018 [facility] Troponin-I 0.00 ng/mL < 0.[address] (TnI) [place] [address] [phone] Urinalysis Profile 02/01/2018 [facility] Urine Color Yellow [address] [place] [address] [phone] Urine Appearance Clear Urine Specific [place] 1.013 N 1.010-1.030 Urine pH 8.0 N 5-9 Urine Urobilinogen Negative Negative Urine Ketones Negative Negative Urine Protein Negative Negative Urine Leukocytes Trace Abnormal Negative Urine Blood 2+ Abnormal Negative Urine Nitrite Negative Negative Urine Bilirubin Negative Negative Urine Glucose Negative Negative Urine White Blood Cell 1+(6-10/hpf) Abnormal Absent Urine Red Blood Cell 3+(>10/hpf) Abnormal Absent Urine Bacteria Absent Absent Urine Culture And 02/01/2018 [facility] Urine SEE RESULT [address] [place] [address] [phone] Inr/Protime 02/01/2018 [facility] Inr 1.77 High 0.77- [address] 1.02 [place] [address] [phone] Laboratory test 02/01/2018 [facility] Partial 38.0 seconds High 26.0- finding [address] Thrombo Time 36.3 [place] [address] PTT [phone] B-Type Natriuretic Peptide BNP 22 pg/mL 2 Lactic Acid 1.4 mmol/L N 0.5-2.0 3 CBC Auto Diff 02/01/2018 [facility] White Blood 7.6 10^3/uL N 3.5-10.[address] [place] [address] [phone] Red Blood Count 5.15 10^6/uL N 4.00-5.40 Hemoglobin 17.9 g/dL N 14.0-18.0 Hematocrit 53 % High 42-52 Mean Corpuscular Volume 102 fL High 80-94 Mean Corpuscular Hemoglobin 35 pg High 27-31 Mean Corpuscular HGB Conc 34 g/dL N 31-36 Red Cell Distribution Width 14 % N 10.5-15 Platelet Count 181 10^3/uL N 150-450 Mean Platelet Volume 7.2 um3 Low 7.4-10.4 Abs Neutrophils 5.7 10^3/uL N 1.5-7.7 Abs Lymphocytes 0.9 10^3/uL Low 1.0-4.8 Abs Monocytes 1.0 10^3/uL High 0-0.8 Abs Eosinophils 0 10^3/uL N 0-0.6 Abs Basophils 0 10^3/uL N 0-0.2 Abs Nucleated RBC 0 10^3/uL Granulocyte % 74.2 % N 38-83 Lymphocyte % 11.5 % Low 25-47 Monocyte % 13.4 % High 0-7 Eosinophil % 0.4 % N 0-6 Basophil % 0.5 % N 0-2 Nucleated Red Blood Cells % 0.3 Comp Metabolic Panel 02/01/2018 [facility] Sodium 138 mmol/L N 135-[address] [place] [address] [phone] Potassium 3.5 mmol/L N 3.5-5.0 Chloride 97 mmol/L Low 101-111 Co2 Carbon Dioxide 30 mmol/L N 22-32 Anion Gap 11 mmol/L N 2-11 Glucose 104 mg/dL High 70-100 Blood Urea Nitrogen 7 mg/dL N 6-24 Creatinine 0.73 mg/dL N 0.67-1.17 BUN/Creatinine Ratio 9.6 N 8-20 Calcium 9.6 mg/dL N 8.6-10.3 Total Protein 7.8 g/dL N 6.4-8.9 Albumin 4.2 g/dL N 3.2-5.2 Globulin 3.6 g/dL N 2-4 Albumin/Globulin Ratio 1.2 N 1-3 Total Bilirubin 0.70 mg/dL N 0.2-1.0 Alkaline Phosphatase 99 U/L N 34-104 Alt 23 U/L N 7-52 Ast 30 U/L N 13-39 Egfr Non- 112.8 >60 Egfr 136.5 >60 4 Laboratory test 02/01/2018 [facility] Magnesium 1.5 mg/dL Low 1.9-2.[address] [place] [address] [phone] Troponin-I (TnI) 0.00 ng/mL <0.04 TSH (Thyroid Stim Horm) 1.54 mcIU/mL N 0.34-5.60 Laboratory test 11/16/2017 [facility] Pathologist (SEE NOTE) [address] [place] [address] [phone] Manual 11/16/2017 [facility] Neutrophil % 66 % N 38-[address] [place] [address] [phone] Lymphocytes % 23 % Low 25-47 Monocytes % 6 % N 0-7 Eosinophils % 4 % N 0-6 Basophil % 1 % N 0-2 Abs Neutrophils 6.1 10^3/uL N 1.5-7.7 Abs Lymphocytes 2.1 10^3/uL N 1.0-4.8 Abs Monocytes 0.6 10^3/uL N 0-0.8 Abs Eosinophils 0.4 10^3/uL N 0-0.6 Abs Basophils 0.1 10^3/uL N 0-0.2 Target Cells 1+ Laboratory test 11/16/2017 [facility] Magnesium TNP mg/dL 1.9 -2.7 [address] [place] [address] [phone] Comp Metabolic 11/16/2017 [facility] Potassium TNP mmol/L 3.5 -5.0 [address] [place] [address] [phone] Ast TNP U/L 13-39 8 Sodium 126 mmol/L Low 139-145 Chloride 89 mmol/L Low 101-111 Co2 Carbon Dioxide 28 mmol/L N 22-32 Anion Gap 9 mmol/L N 2-11 Glucose 73 mg/dL N 70-100 Creatinine 0.85 mg/dL N 0.67-1.17 Calcium 8.1 mg/dL Low 8.6-10.3 Total Protein 5.9 g/dL Low 6.4-8.9 Albumin 3.3 g/dL N 3.2-5.2 Globulin 2.6 g/dL N 2-4 Albumin/Globulin Ratio 1.3 N 1-3 Total Bilirubin 3.00 mg/dL High 0.2-1.0 Alkaline Phosphatase 170 U/L High 34-104 Egfr Non- 94.7 >60 Egfr 121.7 >60 9 Blood Urea Nitrogen 10 mg/dL N 6-24 BUN/Creatinine Ratio 11.8 N 8-20 Alt 83 U/L High 7-52 Laboratory test 11/16/2017 [facility] B-Type 61 pg/mL [address] [place] [address] Peptide BNP [phone] CBC Auto Diff 11/16/2017 [facility] White Blood Count 9.2 10^3/ uL N 3.5-[address] 0.8 [place] [address] [phone] Red Blood Count 3.80 10^6/uL Low 4.0-5.4 Hemoglobin 14.0 g/dL N 14.0-18.0 Hematocrit 40 % Low 42-52 Mean Corpuscular Volume 105 fL High 80-94 11 Mean Corpuscular Hemoglobin 37 pg High 27-31 Mean Corpuscular HGB Conc 35 g/dL N 31-36 Red Cell Distribution Width 14 % N 10.5-15 Platelet Count 107 10^3/uL Low 150-450 Mean Platelet Volume 8.7 um3 N 7.4-10.4 Laboratory 11/16/2017 [facility] Partial 37.4 High 26.0-36.[address] [place] [address] PTT [phone] Inr/Protime 11/16/2017 [facility] Inr 2.21 High 0.77-1.02 [facility] [place] [address] [phone] Laboratory 11/16/2017 [facility] Potassium TNP mmol/L 3.5- 5.0 12 test finding [address] [place] [address] [place] [address] [phone] Magnesium TNP mg/dL 1.9-2.7 13 Ast Redraw TNP U/L 13-39 14 Urine Culture And 11/16/2017 [facility] Urine Culture SEE RESULT [address] [place] [address] [phone] Urinalysis Profile 11/16/2017 [facility] Urine Color Yellow [facility] [place] [address] [phone] Urine Appearance Clear Urine Specific [place] 1.003 Low 1.010-1.030 Urine pH 6.0 N 5-9 Urine Urobilinogen Positive Abnormal Negative Urine Ketones Negative Negative Urine Protein Negative Negative Urine Leukocytes Trace Abnormal Negative Urine Blood Negative Negative Urine Nitrite Negative Negative Urine Bilirubin Negative Negative Urine Glucose Negative Negative Urine White Blood Cell Trace(0-5/hpf) Absent Urine Red Blood Cell Absent Absent Urine Bacteria Absent Absent Comp Metabolic 11/16/2017 [facility] Creatinine 0.71 mg/dL N 0.67-1.17 Panel [address] [place] [address] [phone] Egfr Non- 116.5 >60 Egfr 149.8 >60 16 Blood Urea Nitrogen 9 mg/dL N 6-24 BUN/Creatinine Ratio 12.7 N 8-20 Glucose 73 mg/dL N 70-100 Alt 77 U/L High 7-52 Total Protein 5.4 g/dL Low 6.4-8.9 Alkaline Phosphatase 170 U/L High 34-104 Sodium 129 mmol/L Low 139-145 Chloride 93 mmol/L Low 101-111 Co2 Carbon Dioxide 28 mmol/L N 22-32 Calcium 8.0 mg/dL Low 8.6-10.3 Albumin 2.9 g/dL Low 3.2-5.2 Globulin 2.5 g/dL N 2-4 Albumin/Globulin Ratio 1.2 N 1-3 Total Bilirubin 3.00 mg/dL High 0.2-1.0 Ast 183 U/L High 13-39 17 Potassium TNP mmol/L 3.5-5.0 18 Manual Differential 11/15/2017 [facility] Neutrophil % 76 % N 38-83 [address] [place] [address] [phone] Lymphocytes % 18 % Low 25-47 Monocytes % 4 % N 0-7 Eosinophils % 1 % N 0-6 Variant Lymph % 1 % N 0-6 Macrocytosis 1+ Microcytosis 1+ Target Cells 1+ Abs Neutrophils 8.2 10^3/uL High 1.5-7.7 Abs Lymphocytes 2.0 10^3/uL N 1.0-4.8 Abs Monocytes 0.4 10^3/uL N 0-0.8 Abs Eosinophils 0.1 10^3/uL N 0-0.6 Abs Basophils 0 10^3/uL N 0-0.2 Urinalysis Profile 11/15/2017 [facility] Urine Color Yellow [address] [place] [address] [phone] Urine Appearance Clear Urine Specific [place] 1.010 N 1.010-1.030 Urine pH 5.0 N 5-9 Urine Urobilinogen Negative Negative Urine Ketones Negative Negative Urine Protein Negative Negative Urine Leukocytes Negative Negative Urine Blood Negative Negative * * Abnormal Negative 19 Urine Nitrite Negative Negative Urine Bilirubin Negative Negative Urine Glucose Negative Negative CBC Auto 11/15/2017 [facility] Abs Neutrophils 2.9 10^3/uL N 1.5-7.7 Diff [address] [place] [address] [phone] Abs Lymphocytes 7.0 10^3/uL High 1.0-4.8 Abs Monocytes 0.6 10^3/uL N 0-0.8 Abs Eosinophils 0 10^3/uL N 0-0.6 Abs Basophils 0.2 10^3/uL N 0-0.2 Abs Nucleated RBC 0 10^3/uL Granulocyte % 26.9 % Low 38-83 Lymphocyte % 65.8 % High 25-47 Monocyte % 5.3 % N 0-7 Eosinophil % 0.4 % N 0-6 Basophil % 1.6 % N 0-2 Nucleated Red Blood Cells % 0.2 White Blood Count 10.7 10^3/uL N 3.5-10.8 Red Blood Count 4.27 10^6/uL N 4.0-5.4 Hemoglobin 16.3 g/dL N 14.0-18.0 Hematocrit 45 % N 42-52 Mean Corpuscular Volume 104 fL High 80-94 Mean Corpuscular Hemoglobin 38 pg High 27-31 Mean Corpuscular HGB Conc 37 g/dL High 31-36 Red Cell Distribution Width 15 % N 10.5-15 Platelet Count 129 10^3/uL Low 150-450 Mean Platelet Volume 8.5 um3 N 7.4-10.4 Laboratory test 11/15/2017 [facility] B-Type Natriuretic 39 pg/ mL [address] [place] [address] [phone] Laboratory test 11/15/2017 [facility] LDL Cholesterol 316 mg/dL [address] [place] [address] [phone] Lipid Profile 11/15/2017 [facility] Cholesterol 734 mg/dL 22 (Trig/Chol/HDL) [address] [place] [address] [phone] HDL Cholesterol 16.3 mg/dL 23 Triglycerides 3498 mg/dL 24 LDL Cholesterol (SEE NOTE) mg/dL 25 Laboratory test 11/15/2017 [facility] TSH (Thyroid 2.24 N 0.34 -5.[address] Stim Horm) mcIU/[place] [address] [phone] Comp Metabolic 11/15/2017 [facility] Sodium 124 mmol/L Low 139 -[address] [place] [address] [phone] Chloride 90 mmol/L Low 101-111 Co2 Carbon Dioxide 27 mmol/L N 22-32 Creatinine 0.88 mg/dL N 0.67-1.17 Egfr Non- 90.9 >60 Egfr 117.0 >60 26 Glucose 68 mg/dL Low 70-100 Total Bilirubin 2.60 mg/dL High 0.2-1.0 Alt 80 U/L High 7-52 Calcium 7.8 mg/dL Low 8.6-10.3 Total Protein 6.0 g/dL Low 6.4-8.9 Albumin 3.4 g/dL N 3.2-5.2 Globulin 2.6 g/dL N 2-4 Albumin/Globulin Ratio 1.3 N 1-3 Alkaline Phosphatase 151 U/L High 34-104 Blood Urea Nitrogen 13 mg/dL N 6-24 BUN/Creatinine Ratio 14.8 N 8-20 Potassium TNP mmol/L 3.5-5.0 Anion Gap 7 mmol/L N 2-11 Ast TNP U/L 13-39 Laboratory test 11/15/2017 [facility] Troponin-I 0.00 ng/mL < 0.[address] (TnI) [place] [address] [phone] Comp Metabolic 10/24/2017 [facility] Sodium 138 mmol/L Low 139 -[address] [place] [address] [phone] Potassium 4.0 mmol/L N 3.5-5.0 Chloride 99 mmol/L Low 101-111 Co2 Carbon Dioxide 30 mmol/L N 22-32 Anion Gap 9 mmol/L N 2-11 Glucose 90 mg/dL N 70-100 Blood Urea Nitrogen 14 mg/dL N 6-24 Creatinine 0.91 mg/dL N 0.67-1.17 BUN/Creatinine Ratio 15.4 N 8-20 Calcium 8.7 mg/dL N 8.6-10.3 Total Protein 6.7 g/dL N 6.4-8.9 Albumin 3.5 g/dL N 3.2-5.2 Globulin 3.2 g/dL N 2-4 Albumin/Globulin Ratio 1.1 N 1-3 Total Bilirubin 0.80 mg/dL N 0.2-1.0 Alkaline Phosphatase 86 U/L N 34-104 Alt 51 U/L N 7-52 Ast 114 U/L High 13-39 Egfr Non- 87.5 >60 Egfr 112.5 >60 27 Laboratory test 10/24/2017 [facility] Partial 25.9 seconds Low 26.0-36.[address] [place] [address] PTT [phone] Inr/Protime 10/24/2017 [facility] Inr 0.97 N 0.77-1.[address] [place] [address] [phone] CBC Auto Diff 10/24/2017 [facility] White Blood 6.7 10^3/uL N 3.5-10.[address] [place] [address] [phone] Red Blood Count 4.37 10^6/uL N 4.0-5.4 Hemoglobin 15.5 g/dL N 14.0-18.0 Hematocrit 45 % N 42-52 Mean Corpuscular Volume 104 fL High 80-94 Mean Corpuscular Hemoglobin 36 pg High 27-31 Mean Corpuscular HGB Conc 34 g/dL N 31-36 Red Cell Distribution Width 14 % N 10.5-15 Platelet Count 209 10^3/uL N 150-450 Mean Platelet Volume 6.6 um3 Low 7.4-10.4 Abs Neutrophils 4.3 10^3/uL N 1.5-7.7 Abs Lymphocytes 1.1 10^3/uL N 1.0-4.8 Abs Monocytes 1.0 10^3/uL High 0-0.8 Abs Eosinophils 0.2 10^3/uL N 0-0.6 Abs Basophils 0.1 10^3/uL N 0-0.2 Abs Nucleated RBC 0 10^3/uL Granulocyte % 63.7 % N 38-83 Lymphocyte % 16.7 % Low 25-47 Monocyte % 15.7 % High 0-7 Eosinophil % 3.0 % N 0-6 Basophil % 0.9 % N 0-2 Nucleated Red Blood Cells % 0 Laboratory test 10/03/2014 [facility] Blood Urea 9 mg/dL N 6- [address] [place] [address] [phone] Creatinine 10/03/2014 [facility] Creatinine 0.86 mg/dL N 0.67- 1.[address] [place] [address] [phone] Egfr Non- 94.5 N >60 Egfr 121.6 N >60 28 Laboratory test 2014 [facility] Coagulation 111 % N 75 - 145 29 finding [address] [facility] [place] [address] [phone] Protein C Antigen 108 % N 70-150 30 Protein C Activity 140 % N 70 - 150 31 Protein S Activity 206 % Abnormal 65 - 160 32 Factor 5 Leiden 2014 [facility] Factor V Leiden Negative N Negative Mutation [address] [facility] [place] [address] [phone] Factor V Leiden Interpretation See Comment N 33 Factor V Leiden Reviewed By See Comment N 34 Laboratory test 2014 [facility] Phospholipid IgM AB <4.0 MPL N 35 finding [address] [place] [address] [phone] Homocysteine 28 mcmol/L Abnormal 36 PSA Screening 7.615 ng/mL High 0-4.000 37 Lipid Profile 2014 [facility] Triglycerides 180 mg/dL N 38 (Trig/Chol/HDL) [address] [place] [address] [phone] Cholesterol 242 mg/dL N 39 HDL Cholesterol 46.7 mg/dL N 40 LDL Cholesterol 159 mg/dL N 41 1 SEE RESULT BELOW Name: ARMAND MARINELLI : [address]: Johnson Avila MD Acct: [id number] Unit: [id number] AGE: 52 Location: ED Re02/01/18 SEX: M Status: DEP ER SPEC: [id number] KILLIAN: 02/01/18-[address] [facility] [address]: Debbie MARCH REQ: [id number] RECD: 02/01/18 STATUS: MAIRA ADAME DR: Johnson Ortega MD _ SOURCE: URINE SPDESC: ORDERED: Urine Culture Procedure Result Reported Site Urine Culture Final 02/02/18- 1315 ML No Growth (<1,000 CFU/mL) * ML - Main Lab . END OF REPORT DEPARTMENT OF PATHOLOGY, [address] [place] [address] Chico Lawson M.D. Director [facility] # [id number] 2 >100 to <200 pg/mL: likely compensated congestive heart failure (CHF) 200 to 400 pg/mL: likely moderate CHF >400 pg/mL: likely moderate to severe CHF 3 [facility] Severe Sepsis and Septic Shock Management Bundle Measure requires all lactic acids initially measuring >2.0 mmol/L be repeated. 4 Because ethnic data is not always readily available, this report includes an eGFR for both -Americans and non- Americans. The National Kidney Disease Education Program (NKDEP) does not endorse the use of the MDRD equation for patients that are not between the ages of 18 and 70, are , have extremes of body size, muscle mass, or nutritional status, or are non- or non-. According to the National Kidney Foundation, irrespective of diagnosis, the stage of the disease is based on the level of kidney function: Stage Description GFR(mL/min/1.73 m(2)) 1 Kidney damage with normal or decreased GFR 90 2 Kidney damage with mild decrease in GFR 60-89 3 Moderate decrease in GFR 30-59 4 Severe decrease in GFR 15-29 5 Kidney failure <15 (or dialysis) 5 Macrocytic anemia. Mild thrombocytopenia. No evidence of a hemolytic process. Reviewed by Maryjane Oliva MD 6 Cancelled. Specimen hemolyzed. Unable to perform test requested. Reorder for specimen recollection. PHLEB was called for recollect at 0651 on 11/16/17 by [id number] SAMPLE IS ALSO GROSSLY LIPEMIC 7 Cancelled. Specimen hemolyzed. Unable to perform test requested. Reorder for specimen recollection. PHLEB was called for recollect at 0651 on 11/16/17 by [id number] SAMPLE IS ALSO GROSSLY LIPEMIC 8 Cancelled. Specimen hemolyzed. Unable to perform test requested. Reorder for specimen recollection. PHLEB was called for recollect at 0651 on 11/16/17 by [id number] SAMPLE IS ALSO GROSSLY LIPEMIC 9 Because ethnic data is not always readily available, this report includes an eGFR for both -Americans and non- Americans. The National Kidney Disease Education Program (NKDEP) does not endorse the use of the MDRD equation for patients that are not between the ages of 18 and 70, are , have extremes of body size, muscle mass, or nutritional status, or are non- or non-. According to the National Kidney Foundation, irrespective of diagnosis, the stage of the disease is based on the level of kidney function: Stage Description GFR(mL/min/1.73 m(2)) 1 Kidney damage with normal or decreased GFR 90 2 Kidney damage with mild decrease in GFR 60-89 3 Moderate decrease in GFR 30-59 4 Severe decrease in GFR 15-29 5 Kidney failure <15 (or dialysis) 10 >100 to <200 pg/mL: likely compensated congestive heart failure (CHF) 200 to 400 pg/mL: likely moderate CHF >400 pg/mL: likely moderate to severe CHF 11 Consistent with Previous Results Reported on 11/15/17 12 Specimen lipemic. 13 Specimen lipemic. 14 Specimen lipemic. 15 SEE RESULT BELOW Name: ARMAND MARINELLI : [address]: Kurt Osullivan MD Acct: [id number] Unit: [id number] AGE: 52 Location: ED Re11/16/17 SEX: M Status: DEP ER SPEC: [id number] KILLIAN: 11/16/[address] [facility] [address]: Jac Diaz MD REQ: [id number] RECD: 11/16/17 STATUS: MAIRA ADAME DR: Daljit Ortega MD _ SOURCE: URINE SPDESC: ORDERED: Urine Culture Procedure Result Reported Site Urine Culture Final 11/17/17- 1108 ML No growth of clinically significant organisms * ML - Main Lab . END OF REPORT DEPARTMENT OF PATHOLOGY, [address] [place] [address] Chico Lawson M.D. Director [facility] # [id number] 16 Because ethnic data is not always readily available, this report includes an eGFR for both -Americans and non- Americans. The National Kidney Disease Education Program (NKDEP) does not endorse the use of the MDRD equation for patients that are not between the ages of 18 and 70, are , have extremes of body size, muscle mass, or nutritional status, or are non- or non-. According to the National Kidney Foundation, irrespective of diagnosis, the stage of the disease is based on the level of kidney function: Stage Description GFR(mL/min/1.73 m(2)) 1 Kidney damage with normal or decreased GFR 90 2 Kidney damage with mild decrease in GFR 60-89 3 Moderate decrease in GFR 30-59 4 Severe decrease in GFR 15-29 5 Kidney failure <15 (or dialysis) 17 CORRECTED REPORT --- Corrected on 11/16/17 1005 --- AST previously reported as: 183 H U/L 18 Specimen lipemic. 19 *Ascorbic acid is present which may interfere with detection of blood. 20 >100 to <200 pg/mL: likely compensated congestive heart failure (CHF) 200 to 400 pg/mL: likely moderate CHF >400 pg/mL: likely moderate to severe CHF 21 Desirable: <100 Near Optimal: 100-129 Borderline High: 130-159 High: 160-189 Very High: >189 22 Desirable: <200 Borderline High: 200-239 High: >239 23 Low: <40 Desirable: 40-60 High: >60 24 Desirable: <150 Borderline High: 150-199 High: 200-499 Very High: >500 25 Unable to calculate LDL as triglyceride is > 400 26 Because ethnic data is not always readily available, this report includes an eGFR for both -Americans and non- Americans. The National Kidney Disease Education Program (NKDEP) does not endorse the use of the MDRD equation for patients that are not between the ages of 18 and 70, are , have extremes of body size, muscle mass, or nutritional status, or are non- or non-. According to the National Kidney Foundation, irrespective of diagnosis, the stage of the disease is based on the level of kidney function: Stage Description GFR(mL/min/1.73 m(2)) 1 Kidney damage with normal or decreased GFR 90 2 Kidney damage with mild decrease in GFR 60-89 3 Moderate decrease in GFR 30-59 4 Severe decrease in GFR 15-29 5 Kidney failure <15 (or dialysis) 27 Because ethnic data is not always readily available, this report includes an eGFR for both -Americans and non- Americans. The National Kidney Disease Education Program (NKDEP) does not endorse the use of the MDRD equation for patients that are not between the ages of 18 and 70, are , have extremes of body size, muscle mass, or nutritional status, or are non- or non-. According to the National Kidney Foundation, irrespective of diagnosis, the stage of the disease is based on the level of kidney function: Stage Description GFR(mL/min/1.73 m(2)) 1 Kidney damage with normal or decreased GFR 90 2 Kidney damage with mild decrease in GFR 60-89 3 Moderate decrease in GFR 30-59 4 Severe decrease in GFR 15-29 5 Kidney failure <15 (or dialysis) 28 Because ethnic data is not always readily available, this report includes an eGFR for both -Americans and non- Americans. The National Kidney Disease Education Program (NKDEP) does not endorse the use of the MDRD equation for patients that are not between the ages of 18 and 70, are , have extremes of body size, muscle mass, or nutritional status, or are non- or non-. According to the National Kidney Foundation, irrespective of diagnosis, the stage of the disease is based on the level of kidney function: Stage Description GFR(mL/min/1.73 m(2)) 1 Kidney damage with normal or decreased GFR 90 2 Kidney damage with mild decrease in GFR 60-89 3 Moderate decrease in GFR 30-59 4 Severe decrease in GFR 15-29 5 Kidney failure <15 (or dialysis) 29 Test Performed by: [place] [address] Armored Service Technician: Dalton Ceron M.D. 30 Test Performed by: [place] [address] Armored Service Technician: Dalton Ceron M.D. 31 Test Performed by: [place] [address] Armored Service Technician: Dalton Ceron M.D. 32 Heparin levels greater than 1 U/ml, inhibitors of the APTT test system (especially lupus anticoagulant), or inhibitors of bovine factor V (such antibodies that may arise in patients treated with certain bovine topical thrombin preparations) may produce a falsely normal Protein S Activity result. Suggest clinical correlation and if indicated consider repeat assay of Protein S Activity and Antigen in the absence of anticoagulation therapy. Increased free protein S activity is of unknown hemostatic significance. Test Performed by: [place] [address] Armored Service Technician: Dalton Ceron M.D. 33 This individual DOES NOT have the factor V Leiden (R506Q) mutation. Although the factor V Leiden mutation is absent, the individual may have other genetic and environmental risk factors for thrombosis. If clinically indicated, suggest Coagulation Consultation 13783 (Thrombophilia Profile) to complete the evaluation for an inherited or acquired thrombosing disorder (i.e., thrombophilia). ADDITIONAL INFORMATION This test is a direct mutation analysis using PCR amplification, signal generation and release by cleavage of sequence specific alleles ([employer], [employer], [place], [place]). 34 RESULT: Eleuterio Gabriel M.D., Ph.D. Test Performed by: [place] [address] Armored Service Technician: Dalton Ceron M.D. 35 REFERENCE VALUE <10.0 (Negative) Test Performed by: [place] [address] Armored Service Technician: Dalton Ceron M.D. 36 The homocysteine concentration is elevated in this sample. Increased homocysteine has been associated with an increased risk of cardiovascular disease, cerebrovascular disease, peripheral arterial disease and thrombosis. Vitamin deficiencies (B6, B12 and folic acid) may also cause an increased homocysteine concentration. Inborn errors of methionine metabolism are a potential, but less likely, possibility for hyperhomocysteinemia. Consider plasma or serum methylmalonic acid analysis to rule out vitamin B12 deficiency. REFERENCE VALUE <=13 (Fasting) Test Performed by: [place] [address] Armored Service Technician: Dalton Ceron M.D. 37 Serum levels of PSA measured using the [employer] [place] DXI [employer] immunoassay should not be interpreted as absolute evidence of the presence or absence of disease. The PSA value should be used in conjunction with other pertinent clinical diagnostic procedures. The values obtained with different assay methods or kits cannot be used interchangeably. 38 Desirable <150 Borderline high 150-199 High 200-499 Very High >500 39 Desirable <200 Borderline high 200-239 High >239 40 Low <40 Desirable: 40-60 High: >60 41 Desirable <100 Near Optimal 100-129 Borderline high 130-159 High 160-189 Very High >189 Procedures Date Code Description Status 10/03/2014 90665 ECHO Transthorasic Realtime 2D W Doppler & Color Flow Completed Hosp 06/26/2014 83479 ECHO Transthorasic Realtime 2D W Doppler & Color Flow Completed Hosp 06/26/2014 57579 EKG, Interpretation Only Completed 06/19/2013 88521495 Colonoscopy Completed Encounters Type Date Location Provider Dx Diagnosis Office Visit 02/12/2018 [facility] Daljit Ortega, Z00.01 Encounter for 9:40a Cliff Barraza M.D. general adult Rd medical exam w abnormal findings I10 Essential (primary) hypertension I82.403 Acute embolism and thombos unsp deep veins of low extrm, bi I89.0 Lymphedema, not elsewhere classified F17.210 Nicotine dependence, cigarettes, uncomplicated H61.23 Impacted cerumen, bilateral Z00.00 Encntr for general adult medical exam w/o abnormal findings Office Visit 02/07/2018 [facility] Daljit I10 Essential 7:40a Cliff Ortega M.D. (primary) Carlos hypertension Office Visit 02/01/2018 [facility] Jenna Stover, N.P. I10 Essential 11:21a Assoc,pc (primary) Hospitalists hypertension R45.0 Nervousness Office Visit 12/07/2017 12:50p [facility] Daljit Ortega, I82.403 Acute embolism Cliff Yanes M.D. 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 embolism without Rd acute cor pulmonale Office Visit 08/12/2016 1:00p [facility] Elton Chanel NP H81.10 Benign paroxysmal Medicine - vertigo, Carlos unspecified ear H61.22 Impacted cerumen, left ear Office Visit 09/26/2014 9:00a [facility] Daljit Oretga, 415.19 Pulmonary Medicine - Walker Embolism And [address] Infarction Other 796.2 Blood Pressure Reading Elevated W/O Hypertension 790.93 Elevated Prostate Specific Antigen (PSA) V70.0 Examination General Medical Routine AT [facility] 305.1 Tobacco Use Disorder Office Visit 07/18/2014 9:20a [facility] Daljit Ortega, 790.93 Elevated Medicine - M.Josué Prostate Carlos Specific Antigen (PSA) 415.19 Pulmonary Embolism And Infarction Other V70.0 Examination General Medical Routine AT Health Care Facility Office Visit 07/03/2014 2:00p [facility] Daljit 415.19 Pulmonary Medicine Farzana Ortega M.D. Embolism And Carlos Infarction Other V76.44 Screening For Malig Sreedhar Prostate V77.91 Screening For Lipoid Disorders 724.2 Lumbago 796.2 Blood Pressure Reading Elevated W/O Hypertension Office Visit 06/26/2014 1:08p [facility] Sofia 415.19 Pulmonary Assoc,renny Mejia M.D. Embolism And Hospitalists Infarction Other 486 Pneumonia Organism Unspec 038.9 Septicemia Unspec Office Visit 06/25/2014 [facility] Dwayne 415.19 Pulmonary 1:08p Assoc,renny Magallanes NStacyPStacy Embolism And Hospitalists Infarction Other 038.9 Septicemia Unspec Plan of Treatment Future Appointment(s):10/17/2018 4:20 pm - Elton Chanel NP at [facility] [place]07/19/2018 - Elton Chanel NPI10 Essential (primary) hypertensionComments:Your blood pressure is elevated today. It is important to take your medication daily.I would recommend increasing the Lisinopril to 20mg. Try to check your blood pressure at least once weekly and record those readings. If consistently running greater than 135/85 (either number) please call.Follow up:3 bsfiamH08.571 Pain in right ankle and joints of right footComments:It is likely that you have a lateral ankle sprain based on the pain around the lateral malleolus.I recommend icing frequently, elevating the leg when able, and wrapping with an EDU wrap when you will be ambulating.If you would like to try the topical antiinflammatory that we discussed let me know.If the pain does not continue to improve or worsens let me know and I will order the xray.
[2018-08-01 14:21] LABS: ABS Basophils 0 10^3/ul (0-0.2); ABS Eosinophils 0 10^3/ul (0-0.6); ABS Lymphocytes 0.2 10^3/ul (1.0-4.8); ABS Monocytes 0.9 10^3/ul (0-0.8); ABS Neutrophils 9.3 10^3/ul (1.5-7.7); ABS Nucleated RBC 0 10^3/ul; Eosinophil % 0.1 %; Lymphocyte % 2.3 %; Nucleated Red Blood Cells % 0.1; Platelet Count 47 10^3/ul (150-450)
--- NOTE | 2018-08-01 14:33 | HP ---
History of Present Illness - History of Present Illness Reason for Visit: alcohol withdrawal History of Present Illness: 53 yo M with PMH Of HTN, PE and DVT on Xarelto who drinks regularly. He presented to the ED on 08/01 with acute alcohol withdrawal. Per patient he stopped drinking two days ago. Today around noon he noted the onset of tremors. On evaluation his CIWA score was 36, he was noted to be tremulous and have hallucinations. He received a total of 8 mg of Ativan. He is admitted to the ICU for further stabilization - Past Medical History Cardiac: HTN Pulmonary: Pulmonary embolus Heme/Onc: Other - DVT with PE - Past Family History Family History: Cancer, Other - dementia - Past Social History Smoke: <1 pack per day Alcohol: Heavy - daily red wine Drugs: None Review of Systems - Review of Systems Constitutional: Positive: Weakness Eyes: Negative: Pain, Vision Change, Conjunctivae Inflammation, Eyelid Inflammation, Redness, Other ENT: Negative: Ear Pain, Ear Discharge, Nose Pain, Nose Discharge, Nose Congestion, Mouth Pain, Mouth Swelling, Throat Pain, Throat Swelling, Other Respiratory: Negative: Cough, Dry, Shortness of Breath, Hemoptysis, SOB with Excertion, Pleuritic Pain, Sputum, Wheezing Cardiovascular: Negative: Chest Pain, Palpitations, Orthopnea, Paroxysmal Noc. Dyspnea, Edema, Light Headedness, Other Gastrointestinal: Negative: Nausea, Vomiting, Abdominal Pain, Diarrhea, Constipation, Melena, Hematochezia, Other Genitourinary: Negative: Dysuria, Frequency, Incontinence, Hematuria, Retention , Other Musculoskeletal: Positive: Other - tremors Skin: Negative: Rash, Lesions, Bruce, Bruising, Other Neurological: Positive: Other - tremors - Medications/Allergies Allergies/Adverse Reactions: Allergies Allergy/AdvReac Type Severity Reaction Status Date / Time No Known Allergies Allergy Verified 02/01/18 07:59 Medications: Current Medications Sodium Chloride (Ns 0.9% 1000 Ml) 2,000 mls @ 1,000 mls/hr IV .PER RATE ONE Stop: 08/01/18 16:10 Last Admin: 08/01/18 14:17 Dose: 1,000 mls/hr Magnesium Sulfate (Magnesium Sulf 4 Gm/100 Ml Iv*) 4,000 mg in 100 mls @ 33.333 mls/hr IVPB ONCE ONE Stop: 08/01/18 17:10 Last Admin: 08/01/18 14:17 Dose: 33.333 mls/hr Exam - Exam Vital Signs: Vital Signs (72 hours) 08/01/18 08/01/18 08/01/18 13:01 13:05 13:21 Temperature 99.5 F Pulse Rate 105 Respiratory 25 25 27 Rate Blood Pressure 110/71 (mmHg) O2 Sat by Pulse 97 Oximetry 08/01/18 08/01/18 08/01/18 13:23 13:24 13:51 Temperature Pulse Rate 113 114 106 Respiratory 22 23 20 Rate Blood Pressure 110/71 127/81 (mmHg) O2 Sat by Pulse 95 95 97 Oximetry 08/01/18 08/01/18 14:00 14:07 Temperature Pulse Rate 104 Respiratory 17 20 Rate Blood Pressure (mmHg) O2 Sat by Pulse 97 Oximetry General: Alert, Oriented x3 HEENT: Atraumatic, EOMI Lungs: Clear to auscultation, Normal air movement Cardiovascular: Regular rate, Normal S1, Normal S2, No murmurs Abdomen: Normal bowel sounds, Soft, No tenderness Extremities: No clubbing, No cyanosis, No edema Skin: No significant lesion Neurological: Normal speech, Other - large amplitude tremors of hands bilaterally Psych/Mental Status: Mood NL Assessment/Plan - Assessment/Plan Assessment: 53 yo M with history of HTN, DVT and PE with significant alcohol abuse presents to the ED on 08/01 with tremors and hallucinations consistent with delirium tremens after not drinking x 2 days. 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 No acute process -- Nicoderm patch Home meds: None Gastrointestinal: (1) Alcoholic cirrhosis -- LFTs, follow trend Tbili 3.0 ALK 104 AST 201 ALT 86 -- Liver US ordered -- diet: regular -- bowel regimen: none -- ulcer prophylaxis: not indicated at this time Home meds: None Endocrine: No acute issues -- monitor BGs Home meds: None Renal: (1) Hypomagnesemia; (2) Hypokalemia -- I/O:not recorded -- Cr 1.02 -- Lytes Na 136 K 3.3, replace Ca 9.7 Mag 0.8, replaced Phos ordered with AM labs -- recheck labs after replacement -- IVF: NS @ 100 ml/hr Home meds: Lasix Infectious disease: No acute issues -- Tmax 99.5 -- WBC 10.4 -- Micro 08/01 hepatitis panel ordered Urinalysis ordered blood ordered -- ABX None Home meds: None Neurologic: (1) Delerium tremens; (2) Alcohol abuse -- Precedex gtt for agitation -- CIWA protocol with multivitamins, thiamine and folate -- Melatonin for sleep Home meds: None Hematological: (1) Thrombocytopenia; (2) Coagulopathy; (3) 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 No active bleeding -- Coags INR 1.82 -- DVT prophylaxis: restarting home rivaroxaban Home meds: Rivaroxaban Metabolic: No acute issues Home meds: None Deep vein thrombosis prophylaxis: Rivaroxaban Dietary: Not indicated at this time Condition: serious Prognosis: guarded Code status: full Disposition: admit to ICU Cumulative time spent in the care of this patient (excluding any procedure time) : at least 50 minutes. Patient care included clinical interview (with patient and/or family), bedside exam of the patient, review of labs, x-rays, and other ancillary data, coordination of (respiratory, nursing care, review of patient's records, discussion regarding patients management with involved consultants, primary physician, pharmacists, and other healthcare personnel (dietary, case management , physical/occupational therapy etc.)
[2018-08-01 14:49] LABS: TSH (Thyroid Stimulating Horm) 2.47 mcIU/mL (0.34-5.60)
[2018-08-01] MEDS ORDERED: LORazepam INJ* 2 MG/ML 1 ML VIAL IV PUSH PRN (14:56)
[2018-08-01] MEDS ORDERED: Dexmedetomidine* 400 MCG in NS 0.9% 100 ML* 96 ML IVPB SCH (15:00)
[2018-08-01] MEDS: NS 0.9% 1000 ML** 1,000 ML IV SCH (16:46)
[2018-08-01] MEDS: Nicotine PATCH 14 MG/24 HR* PATCH TRANSDERM SCH (16:46)
[2018-08-01 17:00] LABS: Albumin 3.7 g/dL (3.2-5.2); Albumin/Globulin Ratio 1.3 (1-3); BUN/Creatinine Ratio 9.3 (8-20); Blood Urea Nitrogen 8 mg/dL (6-24); CO2 Carbon Dioxide 26 mmol/L (22-32); Calcium 8.3 mg/dL (8.6-10.3); Chloride 97 mmol/L (101-111); EGFR African American 112.6 (>60); Globulin 2.8 g/dL (2-4); Glucose 80 mg/dL (70-100); Sodium 135 mmol/L (135-145); Total Protein 6.5 g/dL (6.4-8.9)
[2018-08-01 17:01] LABS: ALT 76 U/L (7-52); Alkaline Phosphatase 80 U/L (34-104)
[2018-08-01] MEDS ORDERED: Acetaminophen TAB* 325 MG PO PRN (17:16)
[2018-08-01] MEDS: KCL 10 MEQ/50 ML IVPREMIX* 10 MEQ/50 ML BAG IV SCH ×4 (17:31→21:23)
[2018-08-01] MEDS: QUEtiapine TAB* 25 MG PO SCH (17:32)
[2018-08-01 17:41] LABS: Urine Appearance Cloudy; Urine Bilirubin Negative (Negative); Urine Blood Negative (Negative); Urine Color Yellow; Urine Glucose Negative (Negative); Urine Ketones Trace (Negative); Urine Nitrite Negative (Negative); Urine Protein Negative (Negative); Urine Specific Gravity 1.008 (1.010-1.030); Urine Urobilinogen Positive (Negative)
[2018-08-01 17:57] LABS: Anion Gap 12 mmol/L (2-11)
[2018-08-01] MEDS ORDERED: LORazepam TAB(*) 1 MG PO SCH (18:00)
[2018-08-01] MEDS ORDERED: LORazepam INJ* 2 MG/ML 1 ML VIAL IV PUSH SCH (18:00)
[2018-08-01 18:23] LABS: Magnesium 1.8 mg/dL (1.9-2.7)
[2018-08-01] MEDS: LORazepam TAB(*) 1 MG PO SCH ×2 (18:38→18:40)
[2018-08-01] MEDS ORDERED: Magnesium Sulfate 1 GM IV* 1 GM/100 ML BAG IV ONE (20:40)
[2018-08-01] MEDS ORDERED: Calcium Gluconate INJ* 1 GM in NS 0.9% 50 ML* 50 ML IVPB ONE (20:40)
[2018-08-01] MEDS ORDERED: Labetalol TAB* 100 MG PO SCH (21:00)
[2018-08-01] MEDS: Melatonin 3 MG TAB PO SCH (21:20)
[2018-08-01] MEDS: Dexmedetomidine* 400 MCG in NS 0.9% 100 ML* 96 ML IVPB SCH (23:13)
[2018-08-02] MEDS ORDERED: LORazepam INJ* 2 MG/ML 1 ML VIAL IV PUSH PRN (01:15)
[2018-08-02] MEDS: LORazepam TAB(*) 1 MG PO SCH ×3 (02:46→22:11)
[2018-08-02] MEDS: NS 0.9% 1000 ML** 1,000 ML IV SCH (02:46)
[2018-08-02 05:05] LABS: ABS Basophils 0 10^3/ul (0-0.2); ABS Eosinophils 0.1 10^3/ul (0-0.6); ABS Lymphocytes 0.5 10^3/ul (1.0-4.8); ABS Monocytes 0.7 10^3/ul (0-0.8); ABS Neutrophils 4.1 10^3/ul (1.5-7.7); ABS Nucleated RBC 0 10^3/ul; Eosinophil % 1.2 %; Hematocrit 42 % (42-52); Lymphocyte % 9.4 %; Mean Corpuscular HGB Conc 34 g/dl (31-36); Mean Corpuscular Hemoglobin 36 pg (27-31); Mean Corpuscular Volume 107 fL (80-94); Nucleated Red Blood Cells % 0; Platelet Count 39 10^3/ul (150-450); Red Blood Count 3.92 10^6/ul (4.00-5.40); Red Cell Distribution Width 14 % (10.5-15); White Blood Count 5.4 10^3/ul (3.5-10.8)
[2018-08-02 05:16] LABS: Albumin 3.9 g/dL (3.2-5.2); Albumin/Globulin Ratio 1.4 (1-3); BUN/Creatinine Ratio 12.7 (8-20); Calcium 8.8 mg/dL (8.6-10.3); EGFR African American 124.1 (>60); EGFR Non-African American 102.6 (>60); Globulin 2.8 g/dL (2-4); Potassium 3.9 mmol/L (3.5-5.0); Total Bilirubin 2.6 mg/dL (0.2-1.0); Total Protein 6.7 g/dL (6.4-8.9)
--- NOTE | 2018-08-02 09:26 | PN ---
Date of Service: 08/02/18 - HD 2 Critical Care Services: 53 yo M with PMH Of HTN, PE and DVT on Xarelto who drinks regularly. He presented to the ED on 08/01 with acute alcohol withdrawal. Per patient he stopped drinking two days ago. Today around noon he noted the onset of tremors. On evaluation his CIWA score was 36, he was noted to be tremulous and have hallucinations. He received a total of 8 mg of Ativan. He is admitted to the ICU for further stabilization 08/02: no overnight events. Vital Signs: Temp Pulse Resp BP SpO2 FiO2 97.5 F 78 20 128/85 94 08/02/18 04:00 08/02/18 08:15 08/02/18 08:15 08/02/18 08:15 08/02/18 08:15 Physical Exam: Gen: Alert, sitting up in bed watching TV HEENT: intact Lungs: CTAB Cardiac: RRR Abdomen: soft, NTND Extremities: warm, dry Neuro: alert and oriented. less tremorous today but still with exaggerated startle reflex Fluid Balance (Past 24 Hours): I= O= Net Intake & Output 07/31/18 08/01/18 08/02/18 08/03/18 06:59 06:59 06:59 06:59 Intake Total 1906.6 Output Total 1475 200 Balance 431.6 -200 Weight 196 lb 10.184 oz Intake: IV Fluids 1367 NS (0.9%) 1367 Medicated IV 539.6 CC - Dexmedetomidine/ 142 Precedex Ca Gluconate 70 GEN - KPhos 227.6 GEN - Magnesium 100 Output: Urine 1475 200 Other: Estimated Void Large # Voids 1 Labs: Laboratory Results - last 24 hr 08/01/18 08/01/18 08/01/18 13:32 13:32 13:32 WBC 10.4 RBC 4.15 Hgb 15.0 Hct 44 MCV 106 H MCH 36 H MCHC 34 RDW 14 Plt Count 47 L MPV 9.0 Neut % (Auto) 89.0 Lymph % (Auto) 2.3 Rowan % (Auto) 8.5 Eos % (Auto) 0.1 Baso % (Auto) 0.1 Absolute Neuts (auto) 9.3 H Absolute Lymphs (auto) 0.2 L Absolute Monos (auto) 0.9 H Absolute Eos (auto) 0 Absolute Basos (auto) 0 Absolute Nucleated RBC 0 Nucleated RBC % 0.1 INR (Anticoag Therapy) Sodium 136 Potassium 3.3 L Chloride 91 L Carbon Dioxide 22 Anion Gap 23 H BUN 10 Creatinine 1.02 Est GFR ( Amer) 92.4 Est GFR (Non-Af Amer) 76.4 BUN/Creatinine Ratio 9.8 Glucose 86 Lactic Acid 8.8 H* Calcium 9.7 Magnesium 0.8 L* Total Bilirubin 3.00 H AST 201 H ALT 86 H Alkaline Phosphatase 104 Troponin I 0.02 B-Natriuretic Peptide Total Protein 7.4 Albumin 4.2 Globulin 3.2 Albumin/Globulin Ratio 1.3 TSH 2.47 Urine Color Urine Appearance Urine pH Ur Specific [place] Urine Protein Urine Ketones Urine Blood Urine Nitrate Urine Bilirubin Urine Urobilinogen Ur Leukocyte Esterase Urine Glucose Serum Alcohol 08/01/18 08/01/18 08/01/18 13:32 13:32 13:32 WBC RBC Hgb Hct MCV MCH MCHC RDW Plt Count MPV Neut % (Auto) Lymph % (Auto) Rowan % (Auto) Eos % (Auto) Baso % (Auto) Absolute Neuts (auto) Absolute Lymphs (auto) Absolute Monos (auto) Absolute Eos (auto) Absolute Basos (auto) Absolute Nucleated RBC Nucleated RBC % INR (Anticoag Therapy) 1.82 H Sodium Potassium Chloride Carbon Dioxide Anion Gap BUN Creatinine Est GFR ( Amer) Est GFR (Non-Af Amer) BUN/Creatinine Ratio Glucose Lactic Acid Calcium Magnesium Total Bilirubin AST ALT Alkaline Phosphatase Troponin I B-Natriuretic Peptide 25 Total Protein Albumin Globulin Albumin/Globulin Ratio TSH Urine Color Urine Appearance Urine pH Ur Specific [place] Urine Protein Urine Ketones Urine Blood Urine Nitrate Urine Bilirubin Urine Urobilinogen Ur Leukocyte Esterase Urine Glucose Serum Alcohol < 10 08/01/18 08/01/18 08/01/18 16:34 16:34 17:32 WBC RBC Hgb Hct MCV MCH MCHC RDW Plt Count MPV Neut % (Auto) Lymph % (Auto) Rowan % (Auto) Eos % (Auto) Baso % (Auto) Absolute Neuts (auto) Absolute Lymphs (auto) Absolute Monos (auto) Absolute Eos (auto) Absolute Basos (auto) Absolute Nucleated RBC Nucleated RBC % INR (Anticoag Therapy) Sodium 135 Potassium TNP Chloride 97 L Carbon Dioxide 26 Anion Gap 12 H BUN 8 Creatinine 0.86 Est GFR ( Amer) 112.6 Est GFR (Non-Af Amer) 93.0 BUN/Creatinine Ratio 9.3 Glucose 80 Lactic Acid 2.8 H* Calcium 8.3 L Magnesium 1.8 L Total Bilirubin 2.90 H AST TNP ALT 76 H Alkaline Phosphatase 80 Troponin I B-Natriuretic Peptide Total Protein 6.5 Albumin 3.7 Globulin 2.8 Albumin/Globulin Ratio 1.3 TSH Urine Color Yellow Urine Appearance Cloudy Urine pH 6.0 Ur Specific [place] 1.008 L Urine Protein Negative Urine Ketones Trace A Urine Blood Negative Urine Nitrate Negative Urine Bilirubin Negative Urine Urobilinogen Positive A Ur Leukocyte Esterase Negative Urine Glucose Negative Serum Alcohol 08/02/18 08/02/18 08/02/18 04:34 04:34 04:34 WBC 5.4 RBC 3.92 L Hgb 14.0 Hct 42 MCV 107 H MCH 36 H MCHC 34 RDW 14 Plt Count 39 L MPV 9.0 Neut % (Auto) 75.9 Lymph % (Auto) 9.4 Rowan % (Auto) 12.7 Eos % (Auto) 1.2 Baso % (Auto) 0.8 Absolute Neuts (auto) 4.1 Absolute Lymphs (auto) 0.5 L Absolute Monos (auto) 0.7 Absolute Eos (auto) 0.1 Absolute Basos (auto) 0 Absolute Nucleated RBC 0 Nucleated RBC % 0 INR (Anticoag Therapy) Sodium 136 Potassium 3.9 Chloride 98 L Carbon Dioxide 27 Anion Gap 11 BUN 10 Creatinine 0.79 Est GFR ( Amer) 124.1 Est GFR (Non-Af Amer) 102.6 BUN/Creatinine Ratio 12.7 Glucose 68 L Lactic Acid 0.9 Calcium 8.8 Magnesium 2.0 Total Bilirubin 2.60 H AST 118 H ALT 71 H Alkaline Phosphatase 83 Troponin I B-Natriuretic Peptide Total Protein 6.7 Albumin 3.9 Globulin 2.8 Albumin/Globulin Ratio 1.4 TSH Urine Color Urine Appearance Urine pH Ur Specific [place] Urine Protein Urine Ketones Urine Blood Urine Nitrate Urine Bilirubin Urine Urobilinogen Ur Leukocyte Esterase Urine Glucose Serum Alcohol Studies: 08/01 US liver - cholelithiasis. hepatomegaly and hepatic steatosis 08/01 CXR - COPD. no acute process. Nutrition: regular diet Impression: 53 yo M with history of HTN, DVT and PE with significant alcohol abuse presents to the ED on 08/01 with tremors and hallucinations consistent with delirium tremens after not drinking x 2 days. 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 No acute process -- Nicoderm patch Home meds: None Gastrointestinal: (1) Alcoholic cirrhosis -- LFTs, follow trend Tbili 2.6 from 2.9 ALK 83 AST 118 from 201 ALT 71 from 76 -- Liver US with hepatomegaly and steatosis -- diet: regular -- bowel regimen: none -- ulcer prophylaxis: not indicated at this time Home meds: None Endocrine: No acute issues -- monitor BGs Home meds: None Renal: (1) Hypomagnesemia, resolved; (2) Hypokalemia, resolved -- I/O:1906 ml in / 1475 ml out -- Cr 0.79 from 1.02 -- Lytes Na 136 from 135 K 3.9 Ca 8.8 Mag 2.0 Phos ordered with AM labs -- recheck labs after replacement -- IVF: NS @ 100 ml/hr, HL once taking adequate PO Home meds: Lasix Infectious disease: No acute issues -- Tmax 99.7 -- WBC 5.4 from 10.4 -- Micro 08/01 hepatitis panel ordered Urinalysis ordered blood ordered -- ABX None Home meds: None Neurologic: (1) Delerium tremens; (2) Alcohol abuse -- Tylenol as needed -- Precedex gtt and seroquel for agitation/withdrawal -- CIWA/WAM protocol with multivitamins, thiamine and folate -- Melatonin for sleep Home meds: None Hematological: (1) Thrombocytopenia; (2) Coagulopathy; (3) 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 No active bleeding -- DVT prophylaxis: Rivaroxaban Home meds: Rivaroxaban Metabolic: (1) Lactic acidosis, resolved -- lactic acid 0.9 from 2.8 from 8.8 Home meds: None Deep vein thrombosis prophylaxis: Rivaroxaban Dietary: Not indicated at this time Condition: serious Prognosis: guarded Code status: full Disposition: continue ICU care Cumulative time spent in the care of this patient (excluding any procedure time) : at least 40 minutes. Patient care included clinical interview (with patient and/or family), bedside exam of the patient, review of labs, x-rays, and other ancillary data, coordination of (respiratory, nursing care, review of patient's records, discussion regarding patients management with involved consultants, primary physician, pharmacists, and other healthcare personnel (dietary, case management , physical/occupational therapy etc.) Critical Care Time: 40 min
[2018-08-02] MEDS: Folic Acid TAB* 1 MG PO SCH (09:47)
[2018-08-02] MEDS: Multivitamins/Minerals TAB PO SCH (09:47)
[2018-08-02] MEDS: Labetalol TAB* 100 MG PO SCH (09:47)
[2018-08-02] MEDS: QUEtiapine TAB* 25 MG PO SCH (09:47)
[2018-08-02] MEDS: Rivaroxaban TAB(*) 20 MG TAB PO SCH (09:47)
[2018-08-02] MEDS: Thiamine TAB* 100 MG TAB PO SCH (09:48)
[2018-08-02] MEDS: Nicotine PATCH 14 MG/24 HR* PATCH TRANSDERM SCH (09:50)
[2018-08-02] MEDS: Dexmedetomidine* 400 MCG in NS 0.9% 100 ML* 96 ML IVPB SCH ×3 (09:51→15:02)
[2018-08-02 10:21] LABS: Hepatitis B Surface Antigen Nonreactive (Nonreactive)
[2018-08-02 10:41] LABS: Hepatitis C Antibody Nonreactive (Nonreactive)
[2018-08-02] MEDS: Mouth Piece, Nicotine* 1 EACH CARTRIDGE INH ONE (15:02)
[2018-08-02] MEDS: Nicotine Inhaler* 10 MG AMP INH PRN ×3 (15:02→22:04)
[2018-08-02] MEDS: Nicotine Patch Removal NOTE PATCH OFF SCH (22:04)
[2018-08-02] MEDS: Melatonin 3 MG TAB PO SCH (22:04)
[2018-08-03] MEDS: NS 0.9% 1000 ML** 1,000 ML IV SCH ×2 (00:14→06:10)
[2018-08-03] MEDS: Dexmedetomidine* 400 MCG in NS 0.9% 100 ML* 96 ML IVPB SCH ×2 (02:05→08:42)
[2018-08-03] MEDS: LORazepam TAB(*) 1 MG PO SCH ×4 (02:05→20:55)
[2018-08-03 06:36] LABS: Phosphorus 2.1 mg/dL (2.5-5.0)
[2018-08-03] MEDS: Folic Acid TAB* 1 MG PO SCH (08:41)
[2018-08-03] MEDS: Rivaroxaban TAB(*) 20 MG TAB PO SCH (08:41)
[2018-08-03] MEDS: Thiamine TAB* 100 MG TAB PO SCH (08:41)
[2018-08-03] MEDS: QUEtiapine TAB* 25 MG PO SCH (08:41)
[2018-08-03] MEDS: Labetalol TAB* 100 MG PO SCH (08:41)
[2018-08-03] MEDS: Multivitamins/Minerals TAB PO SCH (08:41)
[2018-08-03] MEDS: Nicotine PATCH 14 MG/24 HR* PATCH TRANSDERM SCH (08:42)
[2018-08-03] MEDS: Nicotine Inhaler* 10 MG AMP INH PRN (10:36)
--- NOTE | 2018-08-03 11:26 | PN ---
Date of Service: 08/03/18 Critical Care Services: 53 yo M with PMH Of HTN, PE and DVT on Xarelto who drinks regularly. He presented to the ED on 08/01 with acute alcohol withdrawal. 08/03: requiring only minimal ativan. Answering questions appropriately. Vital Signs: Temp Pulse Resp BP SpO2 FiO2 99.0 F 87 16 126/74 93 08/03/18 10:24 08/03/18 11:00 08/03/18 11:00 08/03/18 10:42 08/03/18 11:00 Physical Exam: Gen - nad heent - ncat, eomi neck - no jvd lungs - cta, no wheeze abd - soft, nt ext - mild LE edema neuro - awake, alert, answering questions appropriately Fluid Balance (Past 24 Hours): I= O= Net Intake & Output 08/01/18 08/02/18 08/03/18 08/04/18 06:59 06:59 06:59 06:59 Intake Total 1906.6 4013.3 360 Output Total 1475 1400 450 Balance 431.6 2613.3 -90 Weight 89.193 kg 87.6 kg Intake: IV Fluids 1367 1898 NS (0.9%) 1367 1898 Medicated IV 539.6 5.3 CC - Dexmedetomidine/ 142 5.3 Precedex Ca Gluconate 70 GEN - KPhos 227.6 GEN - Magnesium 100 Oral 2110 360 Output: Urine 1475 1400 450 Other: Estimated Void Large Date of Last Bowel 08/03/2018 Movement # Bowel Movements 2 Estimated Stool Amount Small # Voids 1 Labs: Laboratory Results - last 24 hr 08/03/18 08/03/18 06:06 06:06 Lactic Acid 0.9 Phosphorus 2.1 L Studies: 08/03 liver sono - hepatomegaly and hepatosteatosis Impression: 53 yo M with history of HTN, DVT and PE with significant alcohol abuse presents to the ED on 08/01 with tremors and hallucinations consistent with delirium tremens after not drinking x 2 days. Admitted to ICU for Precedex gtt to manage symptoms Plan: Neuro - etoh withdrawal - requiring only minimal ativan - c/w wam protocol - pt/ot/sw consults - fall precautions - 1:1 for safety CV - htn - c/w labetalol pulm - oxygenating well on room air id - afebrile - wbc normal gi - diet as tolerated renal - monitor i/o - replete electrolytes heme - h/o dvt/pe - patient states he only had 1 episode of pe in the past after a plane flight - called office of patients pmd to clarify. awaiting call back. - if only 1 episode after plane flight will stop xarelto as patient is fall risk endo - no issue lines - piv ppx - gi/dvt full code Patient stable for downgrade to floor Critical Care Time: 50 mins
[2018-08-03 11:32] LABS: BUN/Creatinine Ratio 15.9 (8-20); Calcium 9.1 mg/dL (8.6-10.3); EGFR African American 145.1 (>60); EGFR Non-African American 119.9 (>60); Magnesium 1.5 mg/dL (1.9-2.7); Potassium 3.5 mmol/L (3.5-5.0)
[2018-08-03] MEDS ORDERED: LORazepam INJ* 2 MG/ML 1 ML VIAL IV PUSH ONE ×2 (12:11→22:50)
[2018-08-03] MEDS ORDERED: LORazepam INJ* 2 MG/ML 1 ML VIAL ONE (12:13)
[2018-08-03] MEDS ORDERED: LORazepam TAB(*) 1 MG ONE (12:19)
[2018-08-03] MEDS ORDERED: Haloperidol INJ IV/IM* 5 MG/ML AMP IV SLOW PU ONE (12:32)
[2018-08-03] MEDS ORDERED: Haloperidol INJ IV/IM* 5 MG/ML AMP ONE (12:33)
[2018-08-03] MEDS: LORazepam INJ* 2 MG/ML 1 ML VIAL IV PUSH SCH ×4 (13:04→18:58)
[2018-08-03] MEDS ORDERED: Potassium Chlor TAB* 20 MEQ TAB.ER PO ONE (15:41)
[2018-08-03] MEDS ORDERED: Potassium Phosphate IV* 15 MMOLE in NS 0.9% 250 ML* 250 ML IVPB ONE (16:00)
[2018-08-03] MEDS ORDERED: Magnesium Sulfate IV* 3 GM in NS 0.9% 100 ML* 100 ML IVPB ONE (16:00)
[2018-08-03] MEDS: Nicotine Patch Removal NOTE PATCH OFF SCH (20:47)
[2018-08-03] MEDS: Melatonin 3 MG TAB PO SCH (20:56)
[2018-08-03] MEDS ORDERED: LORazepam TAB(*) 1 MG PO SCH (22:00)
[2018-08-04] MEDS: LORazepam TAB(*) 1 MG PO SCH ×2 (04:53→17:49)
[2018-08-04 05:33] LABS: ABS Basophils 0 10^3/ul (0-0.2); ABS Eosinophils 0.1 10^3/ul (0-0.6); ABS Lymphocytes 0.7 10^3/ul (1.0-4.8); ABS Monocytes 1.2 10^3/ul (0-0.8); ABS Neutrophils 4.7 10^3/ul (1.5-7.7); ABS Nucleated RBC 0 10^3/ul; Eosinophil % 1.9 %; Hematocrit 40 % (42-52); Hemoglobin 13.5 g/dl (14.0-18.0); Lymphocyte % 10.8 %; Mean Corpuscular HGB Conc 34 g/dl (31-36); Mean Corpuscular Hemoglobin 36 pg (27-31); Mean Corpuscular Volume 108 fL (80-94); Mean Platelet Volume 8.5 fL (7.4-10.4); Nucleated Red Blood Cells % 0; Platelet Count 72 10^3/ul (150-450); Red Blood Count 3.74 10^6/ul (4.00-5.40); Red Cell Distribution Width 14 % (10.5-15); White Blood Count 6.8 10^3/ul (3.5-10.8)
[2018-08-04 05:52] LABS: BUN/Creatinine Ratio 12.8 (8-20); Calcium 9.2 mg/dL (8.6-10.3); EGFR Non-African American 104.1 (>60); Magnesium 1.8 mg/dL (1.9-2.7); Phosphorus 3.5 mg/dL (2.5-5.0)
[2018-08-04] MEDS: LORazepam INJ* 2 MG/ML 1 ML VIAL IV PUSH SCH ×9 (06:46→23:34)
[2018-08-04] MEDS: Labetalol TAB* 100 MG PO SCH (08:40)
[2018-08-04] MEDS: Thiamine TAB* 100 MG TAB PO SCH (08:40)
[2018-08-04] MEDS: QUEtiapine TAB* 25 MG PO SCH (08:40)
[2018-08-04] MEDS: Multivitamins/Minerals TAB PO SCH (08:40)
[2018-08-04] MEDS: Folic Acid TAB* 1 MG PO SCH (08:40)
[2018-08-04] MEDS: Rivaroxaban TAB(*) 20 MG TAB PO SCH (08:40)
[2018-08-04] MEDS: Nicotine PATCH 14 MG/24 HR* PATCH TRANSDERM SCH (08:41)
[2018-08-04] MEDS: Haloperidol INJ IV/IM* 5 MG/ML AMP IM PRN ×2 (12:17→19:48)
[2018-08-04] MEDS ORDERED: Thiamine IV* 100 MG/ML 2 ML VIAL IM ONE (13:30)
[2018-08-04] MEDS ORDERED: Thiamine IV* 250 MG in NS 0.9% 100 ML* 100 ML IV SCH (14:00)
--- NOTE | 2018-08-04 17:01 | PN ---
Subjective Date of Service: 08/04/18 Interval History: HOSPITALIST PROGRESS NOTE Patient seen and examined at bedside. Care reviewed and d/w Alba Coats RN. Called by RN multiple times because patient wanted to be discharged. He offers no complaints, is anxious for discharge. He tells me he drinks half a bottle of vodka 4 times a week. Denies drinking any other alcoholic beverages. When I asked about his plans for discharge he did not give me any. When I asked what would he do if he feel down, he told me he would get up. I then asked " what if you cannot get up" and his answer was "I always get up". "What if you break your leg and cannot get up?" It took a lot of prompting for him to tell me he would call 911. Family History: Unchanged from Admission Social History: Unchanged from Admission Past Medical History: Unchanged from Admission Objective Active Medications: Acetaminophen (Tylenol Tab*) 650 mg PO Q4H PRN PRN Reason: PAIN Folic Acid (Folvite Tab*) 1 mg PO DAILY [facility] Last Admin: 08/04/18 08:40 Dose: 1 mg Haloperidol Lactate (Haldol Inj Iv/Im*) 5 mg IM Q6H PRN PRN Reason: AGITATION Last Admin: 08/04/18 12:17 Dose: 5 mg Labetalol HCl (Trandate Tab*) 100 mg PO DAILY [facility] Last Admin: 08/04/18 08:40 Dose: 100 mg Lorazepam (Ativan Inj*) 0 - 6 mg IV PUSH .PER [facility] PROTOCOL [facility]; Protocol Last Admin: 08/04/18 16:35 Dose: 2 mg Lorazepam (Ativan Tab(*)) 2 mg PO Q12H [facility]; Taper Stop: 08/06/18 08:59 Last Admin: 08/04/18 04:53 Dose: 2 mg Melatonin (Melatonin) 3 mg PO BEDTIME [facility] Last Admin: 08/03/18 20:56 Dose: 3 mg Multivitamins/Minerals (Theragran/Minerals Tab*) 1 tab PO DAILY [facility] Last Admin: 08/04/18 08:40 Dose: 1 tab Nicotine (Nicotine Patch 14 Mg/24 Hr*) 1 patch TRANSDERM DAILY [facility] Last Admin: 08/04/18 08:41 Dose: Not Given Nicotine (Nicotine Inhaler*) 10 mg INH Q2H PRN PRN Reason: CRAVING Last Admin: 08/03/18 10:36 Dose: 10 mg Pharmacy Profile Note (Nicotine Patch Removal Note*) 1 note PATCH OFF 2100 [facility] Last Admin: 08/03/18 20:47 Dose: Not Given Quetiapine Fumarate (Seroquel Tab*) 50 mg PO DAILY [facility] Last Admin: 08/04/18 08:40 Dose: 50 mg Rivaroxaban (Xarelto(*)) 20 mg PO DAILY [facility] Last Admin: 08/04/18 08:40 Dose: 20 mg Thiamine HCl (Vitamin B-1 Tab*) 100 mg PO DAILY [facility] Last Admin: 08/04/18 08:40 Dose: 100 mg Vital Signs - 8 hr 08/04/18 08/04/18 08/04/18 10:35 10:46 12:16 Temperature 97.7 F Pulse Rate 80 Respiratory 21 20 16 Rate Blood Pressure 126/87 (mmHg) O2 Sat by Pulse 99 Oximetry 08/04/18 08/04/18 08/04/18 12:39 13:14 14:12 Temperature 97.8 F 98.4 F Pulse Rate 89 89 Respiratory 20 16 20 Rate Blood Pressure 125/52 118/80 (mmHg) O2 Sat by Pulse 98 97 Oximetry 08/04/18 08/04/18 08/04/18 14:30 16:20 16:35 Temperature 97.9 F Pulse Rate 92 Respiratory 18 18 15 Rate Blood Pressure 128/86 (mmHg) O2 Sat by Pulse 100 Oximetry Oxygen Devices in Use Now: None Appearance: Middle aged gentleman with a disheveled appearance sitting up in bed , tremulous, but in NAD Eyes: No Scleral Icterus Ears/Nose/Mouth/Throat: Mucous Membranes Moist Neck: Trachea Midline Respiratory: Symmetrical Chest Expansion and Respiratory Effort, Clear to Auscultation Cardiovascular: NL Sounds; No Murmurs; No JVD, RRR Abdominal: NL Sounds; No Tenderness; No Distention Neurological: Alert and Oriented x 3, - - Very tremulous, unsteady on his feet. Stands up with difficulty from bed and has broad base stance, swaying from side to side. Nystagmus + Result Diagrams: 08/04/18 05:18 08/04/18 05:18 Assess/Plan/Problems-Billing Assessment: Mr Plata is a 53yo with PMH of Alcohol abuse, DVT/PE on Xarelto, who was admitted with alcohol withdrawal, initially requiring ICU stay for Precedex drip. - Patient Problems (1) Alcohol withdrawal Comment: - Still scoring on WAM, very tremulous. - Continue Ativan. - I believe this patient does not have capacity to sign out AMA as he does not seem to have insight in to his diagnosis and condition; he cannot provide safe alternative to staying in the hospital. He asked me to contact his friend ( Nasreen Combs [phone] - works in the [employer]ist office) as he was sure she would come and pick him up. I called her adn she's very concerned with his condition and progressive decline. She will not came pick him up and he's aware. Daughter also called and was updated. - consult to help with rehab after discharge. (2) Alcoholic hepatitis Comment: - Mild LFTs elevation. - US shows hepatomegaly and steatosis. (3) Hypomagnesemia Comment: - Replete. (4) Wernicke-Korsakoff syndrome (alcoholic) Comment: - Suspect cognitive decline and nystagmus associated with Wernicke's - replete Thiamine. (5) H/O deep venous thrombosis Comment: - h/o recurrent DVT/PE - Dr Snider d/w PCP - had recurrence off Xarelto, needs lifelong AC. - At high risk of bleeding with alcohol abuse. (6) Full code status Comment: - Inpatient.
[2018-08-04] MEDS: Magnesium Oxide TAB* 400 MG PO SCH (19:50)
[2018-08-04] MEDS: Nicotine Patch Removal NOTE PATCH OFF SCH (19:50)
[2018-08-04] MEDS: Melatonin 3 MG TAB PO SCH (19:50)
[2018-08-05] MEDS: LORazepam INJ* 2 MG/ML 1 ML VIAL IV PUSH SCH ×8 (01:24→16:58)
[2018-08-05] MEDS ORDERED: LORazepam TAB(*) 1 MG PO ONE ×2 (05:20→17:00)
[2018-08-05] MEDS: LORazepam TAB(*) 1 MG PO SCH (05:24)
[2018-08-05 06:15] LABS: Albumin 3.5 g/dL (3.2-5.2); Albumin/Globulin Ratio 1.2 (1-3); BUN/Creatinine Ratio 18.8 (8-20); Calcium 9.2 mg/dL (8.6-10.3); EGFR African American 158.3 (>60); EGFR Non-African American 130.8 (>60); Globulin 2.9 g/dL (2-4); Magnesium 1.6 mg/dL (1.9-2.7); Potassium 3.6 mmol/L (3.5-5.0); Total Bilirubin 1.2 mg/dL (0.2-1.0); Total Protein 6.4 g/dL (6.4-8.9)
[2018-08-05] MEDS: Nicotine PATCH 14 MG/24 HR* PATCH TRANSDERM SCH (06:59)
[2018-08-05] MEDS: Folic Acid TAB* 1 MG PO SCH (08:31)
[2018-08-05] MEDS: QUEtiapine TAB* 25 MG PO SCH (08:31)
[2018-08-05] MEDS: Rivaroxaban TAB(*) 20 MG TAB PO SCH (08:31)
[2018-08-05] MEDS: Multivitamins/Minerals TAB PO SCH (08:32)
[2018-08-05] MEDS: Magnesium Oxide TAB* 400 MG PO SCH ×2 (08:32→23:20)
[2018-08-05] MEDS: Thiamine TAB* 100 MG TAB PO SCH (08:32)
[2018-08-05] MEDS: Labetalol TAB* 100 MG PO SCH (08:32)
[2018-08-05] MEDS: Thiamine IV* 250 MG in NS 0.9% 100 ML* 100 ML IV SCH (09:37)
[2018-08-05] MEDS ORDERED: Mouth Piece, Nicotine* 1 EACH CARTRIDGE ONE (10:58)
[2018-08-05] MEDS: Nicotine Inhaler* 10 MG AMP INH PRN ×2 (10:59→23:21)
[2018-08-05] MEDS: Mouth Piece, Nicotine* 1 EACH CARTRIDGE INH ONE (10:59)
--- NOTE | 2018-08-05 11:25 | PN ---
Subjective Date of Service: 08/05/18 Interval History: Required ativan 4 mg early this AM. Yesterday was threatening to leave AM. This AM more cooperative but very restless and tremulous. Slow to respond to questions. Discussed inpatient rehab. 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 But may be persuaded short term. Good PO. No CP or SOB Family History: Unchanged from Admission Social History: Unchanged from Admission Past Medical History: Unchanged from Admission Objective Active Medications: Acetaminophen (Tylenol Tab*) 650 mg PO Q4H PRN PRN Reason: PAIN Folic Acid (Folvite Tab*) 1 mg PO DAILY [facility] Last Admin: 08/05/18 08:31 Dose: 1 mg Haloperidol Lactate (Haldol Inj Iv/Im*) 5 mg IM Q6H PRN PRN Reason: AGITATION Last Admin: 08/04/18 19:48 Dose: 5 mg Thiamine HCl 250 mg/ Sodium (Chloride) 102.5 mls @ 205 mls/hr IV Q24H [facility] Last Admin: 08/05/18 09:37 Dose: 205 mls/hr Labetalol HCl (Trandate Tab*) 100 mg PO DAILY [facility] Last Admin: 08/05/18 08:32 Dose: 100 mg Lorazepam (Ativan Inj*) 0 - 6 mg IV PUSH .PER [facility] PROTOCOL ON [facility]; Protocol Last Admin: 08/05/18 11:04 Dose: 2 mg Magnesium Oxide (Magox 400 Tab*) 800 mg PO BID [facility] Stop: 08/05/18 21:01 Last Admin: 08/05/18 08:32 Dose: 800 mg Melatonin (Melatonin) 3 mg PO BEDTIME [facility] Last Admin: 08/04/18 19:50 Dose: 3 mg Multivitamins/Minerals (Theragran/Minerals Tab*) 1 tab PO DAILY [facility] Last Admin: 08/05/18 08:32 Dose: 1 tab Nicotine (Nicotine Patch 14 Mg/24 Hr*) 1 patch TRANSDERM DAILY [facility] Last Admin: 08/05/18 06:59 Dose: Not Given Nicotine (Nicotine Inhaler*) 10 mg INH Q2H PRN PRN Reason: CRAVING Last Admin: 08/05/18 10:59 Dose: 10 mg Pharmacy Profile Note (Nicotine Patch Removal Note*) 1 note PATCH OFF 2100 [facility] Last Admin: 08/04/18 19:50 Dose: Not Given Quetiapine Fumarate (Seroquel Tab*) 50 mg PO DAILY [facility] Last Admin: 08/05/18 08:31 Dose: 50 mg Rivaroxaban (Xarelto(*)) 20 mg PO DAILY [facility] Last Admin: 08/05/18 08:31 Dose: 20 mg Thiamine HCl (Vitamin B-1 Tab*) 100 mg PO DAILY [facility] Last Admin: 08/05/18 08:32 Dose: 100 mg Vital Signs - 8 hr 08/05/18 08/05/18 08/05/18 04:00 04:45 05:00 Temperature 98.6 F Pulse Rate 77 Respiratory 18 18 18 Rate Blood Pressure 124/68 (mmHg) O2 Sat by Pulse 98 Oximetry 08/05/18 08/05/18 08/05/18 05:24 05:31 06:19 Temperature 97.9 F Pulse Rate 83 Respiratory 18 18 16 Rate Blood Pressure 112/61 (mmHg) O2 Sat by Pulse 96 Oximetry 08/05/18 08/05/18 08/05/18 07:28 07:50 07:54 Temperature 97.8 F Pulse Rate 79 Respiratory 22 18 18 Rate Blood Pressure 121/75 (mmHg) O2 Sat by Pulse 97 Oximetry 08/05/18 08/05/18 08/05/18 09:37 10:02 10:56 Temperature 97.5 F Pulse Rate 87 85 Respiratory 20 18 16 Rate Blood Pressure 109/63 140/71 (mmHg) O2 Sat by Pulse 95 98 Oximetry 08/05/18 11:04 Temperature Pulse Rate Respiratory 21 Rate Blood Pressure (mmHg) O2 Sat by Pulse Oximetry Oxygen Devices in Use Now: None Appearance: NAD, tremulous Ears/Nose/Mouth/Throat: Mucous Membranes Moist Respiratory: Symmetrical Chest Expansion and Respiratory Effort, Clear to Auscultation Cardiovascular: NL Sounds; No Murmurs; No JVD, - - soft murmur Abdominal: - - mild distention, soft, NT Extremities: - - trace edema Neurological: - - alert and oriented, tremulous, no gross deficits, slow to respond Result Diagrams: 08/04/18 05:18 08/05/18 05:14 Additional Lab and Data: Lab Results 08/01/18 08/01/18 Range/Units 13:32 13:32 WBC 10.4 (3.5-10.8) 10^3/ul RBC 4.15 (4.00-5.40) 10^6/ul Hgb 15.0 (14.0-18.0) g/dl Hct 44 (42-52) % MCV 106 H (80-94) fL MCH 36 H (27-31) pg MCHC 34 (31-36) g/dl RDW 14 (10.5-15) % Plt Count Pending MPV Pending Neut % (Auto) Pending Lymph % (Auto) Pending [place] % (Auto) Pending Eos % (Auto) Pending Baso % (Auto) Pending Absolute Neuts (auto) Pending Absolute Lymphs (auto) Pending Absolute Monos (auto) Pending Absolute Eos (auto) Pending Absolute Basos (auto) Pending Absolute Nucleated RBC Pending Nucleated RBC % Pending INR (Anticoag Therapy) 1.82 H (0.77-1.02) Microbiology and Other Data: Microbiology 08/01/18 18:06 Aerobic Blood Culture - Preliminary Blood Venous No Growth Day 2 Anaerobic Blood Culture - Preliminary No Growth Day 2 08/01/18 16:30 Nasal Screen MRSA (PCR) - Final Nasal Mrsa Not Detected Assess/Plan/Problems-Billing Assessment: Mr Plata is a 53yo with PMH of Alcohol abuse, DVT/PE on Xarelto, who was admitted with alcohol withdrawal, initially requiring ICU stay for Precedex drip. - Patient Problems (1) Alcohol withdrawal Current Visit: Yes Status: Acute Code(s): F10.239 - ALCOHOL DEPENDENCE WITH WITHDRAWAL, UNSPECIFIED SNOMED Code(s): 798658479 Comment: - Still scoring on WAM, very tremulous. - Continue Ativan. Per Dr. Reyes on 08/04: believe this patient does not have capacity to sign out AMA as he does not seem to have insight in to his diagnosis and condition; he cannot provide safe alternative to staying in the hospital. He asked me to contact his friend (Nasreen Combs [phone] - works in the [employer] office) as he was sure she would come and pick him up. I called her adn she's very concerned with his condition and progressive decline. She will not came pick him up and he's aware. Daughter also called and was updated. 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 - consult to help with rehab after discharge. Follow up with social work. Patient my qualify for short term rehab for physical deconditioning or rehab. PT consulted as well Appears to have capacity on my encounter. Consider psych eval if patient does not qualify or is unwilling to go to inpatient rehab of some sort. (2) H/O deep venous thrombosis Current Visit: Yes Status: Acute Code(s): Z86.718 - PERSONAL HISTORY OF OTHER VENOUS THROMBOSIS AND EMBOLISM SNOMED Code(s): 205976085 Comment: - h/o recurrent DVT/PE - Dr Snider d/w PCP - had recurrence off Xarelto, needs lifelong AC. - At high risk of bleeding with alcohol abuse. Would have PT evaluate him. Consider risk vs benefit, especially if he doesn't go to rehab. The risks of anticoagulation may outweight benefit. Patient will need close follow up if he remains on anticoagulation (3) Alcoholic hepatitis Current Visit: Yes Status: Acute Code(s): K70.10 - ALCOHOLIC HEPATITIS WITHOUT ASCITES SNOMED Code(s): 876678415 Comment: - Mild LFTs elevation. - US shows hepatomegaly and steatosis. (4) Full code status Current Visit: Yes Status: Acute Code(s): Z78.9 - OTHER SPECIFIED HEALTH STATUS SNOMED Code(s): 347042499 Comment: - Inpatient. (5) Hypomagnesemia Current Visit: Yes Status: Acute Code(s): E83.42 - HYPOMAGNESEMIA SNOMED Code(s): 645978585 Comment: - Replete. (6) Wernicke-Korsakoff syndrome (alcoholic) Current Visit: Yes Status: Acute Code(s): F10.96 - ALCOHOL USE, UNSP W ALCOH -INDUCE PERSIST AMNESTIC DISORDER SNOMED Code(s): 234426185 Comment: - Suspect cognitive decline and nystagmus associated with Wernicke' s - replete Thiamine.
[2018-08-05] MEDS ORDERED: Magnesium Sulfate 2 GM IV* 2 GM/50 ML BAG IVPB ONE (11:30)
[2018-08-05] MEDS: Melatonin 3 MG TAB PO SCH (23:21)
[2018-08-05] MEDS: Nicotine Patch Removal NOTE PATCH OFF SCH (23:21)
[2018-08-06] MEDS: Folic Acid TAB* 1 MG PO SCH (08:59)
[2018-08-06] MEDS: Thiamine TAB* 100 MG TAB PO SCH (08:59)
[2018-08-06] MEDS: Multivitamins/Minerals TAB PO SCH (08:59)
[2018-08-06] MEDS: Nicotine PATCH 14 MG/24 HR* PATCH TRANSDERM SCH (09:00)
[2018-08-06] MEDS: QUEtiapine TAB* 25 MG PO SCH (09:00)
[2018-08-06] MEDS: Labetalol TAB* 100 MG PO SCH (09:00)
[2018-08-06] MEDS: Rivaroxaban TAB(*) 20 MG TAB PO SCH (09:00)
[2018-08-06 09:46] LABS: ABS Basophils 0 10^3/ul (0-0.2); ABS Eosinophils 0.2 10^3/ul (0-0.6); ABS Monocytes 2.4 10^3/ul (0-0.8); ABS Neutrophils 5.8 10^3/ul (1.5-7.7); ABS Nucleated RBC 0 10^3/ul; Eosinophil % 1.8 %; Hematocrit 43 % (42-52); Hemoglobin 14.5 g/dl (14.0-18.0); Mean Corpuscular HGB Conc 34 g/dl (31-36); Mean Corpuscular Hemoglobin 36 pg (27-31); Mean Corpuscular Volume 107 fL (80-94); Mean Platelet Volume 7.7 fL (7.4-10.4); Nucleated Red Blood Cells % 0; Platelet Count 171 10^3/ul (150-450); Red Blood Count 3.99 10^6/ul (4.00-5.40); Red Cell Distribution Width 14 % (10.5-15); White Blood Count 9.4 10^3/ul (3.5-10.8)
[2018-08-06 10:03] LABS: BUN/Creatinine Ratio 11.4 (8-20); Calcium 9.8 mg/dL (8.6-10.3); EGFR African American 142.7 (>60); Potassium 3.7 mmol/L (3.5-5.0)
[2018-08-06] MEDS: Thiamine IV* 250 MG in NS 0.9% 100 ML* 100 ML IV SCH (10:46)
[2018-08-06 12:51] LABS: Magnesium 1.8 mg/dL (1.9-2.7)
--- NOTE | 2018-08-06 13:21 | CONSULT ---
Consult Consult: Consultation for Medical decision making capacity: S: Psychiatry is asked to see this single, domiciled, employed white male with a history of severe alcohol dependence, HTN and DVT/PE on Xarelto to assess whether he has capacity to leave the hospital AMA. According to EMR, the patient is at risk of losing his job if he does not complete substance use inpatient treatment. Upon presentation, patient is sitting up in bed and pleasant upon approach. He is poorly groomed, disheveled with oily hair and red, flaky skin on his face. He states he is "tired" due to being in the hospital bed for days. When I ask what his discharge plans are, he states he is hoping to go home, "get back into shape and go back to work." He makes no mention of being referred to substance use treatment. He states that he drinks "quite a bit" and reports that he drinks 1/4 of bottle of vodka daily after work. He states he has only tried to stop once when he went to rehab around age 25. He denies depressed mood or suicidality. He reports motivation for drinking is for enjoyment. O: middle-aged white male, pleasant cooperative, euthymic with bright affect. Denies SI/HI/ or urges for self harm. Scores 26/30 on MMSE, missing points for time orientation. He exhibits impaired insight and judgment. A/P: Capacity: the patient clearly lacks capacity to make informed medical decisions. Psychiatry feels that substance use treatment is warranted.
--- NOTE | 2018-08-06 16:00 | PN ---
Subjective Date of Service: 08/06/18 Interval History: Required Ativan Yesterday afternoon approx 1700. Patient resting in chair on assessment. When asked about events leading up to admission, patient reports he was brought to the Emergency Room after falling on ice. Patient makes no mention of alcohol or withdrawal. Denies tremors, hallucination, chest pain, shortness of breath, nausea, vomiting , diarrhea, abd pain. Family History: Unchanged from Admission Social History: Unchanged from Admission Past Medical History: Unchanged from Admission Objective Active Medications: Acetaminophen (Tylenol Tab*) 650 mg PO Q4H PRN PRN Reason: PAIN Folic Acid (Folvite Tab*) 1 mg PO DAILY [facility] Last Admin: 08/06/18 08:59 Dose: 1 mg Haloperidol Lactate (Haldol Inj Iv/Im*) 5 mg IM Q6H PRN PRN Reason: AGITATION Last Admin: 08/04/18 19:48 Dose: 5 mg Labetalol HCl (Trandate Tab*) 100 mg PO DAILY [facility] Last Admin: 08/06/18 09:00 Dose: 100 mg Lorazepam (Ativan Inj*) 0 - 6 mg IV PUSH .PER [facility] PROTOCOL [facility]; Protocol Last Admin: 08/05/18 16:58 Dose: 2 mg Melatonin (Melatonin) 3 mg PO BEDTIME [facility] Last Admin: 08/05/18 23:21 Dose: 3 mg Multivitamins/Minerals (Theragran/Minerals Tab*) 1 tab PO DAILY [facility] Last Admin: 08/06/18 08:59 Dose: 1 tab Nicotine (Nicotine Patch 14 Mg/24 Hr*) 1 patch TRANSDERM DAILY [facility] Last Admin: 08/06/18 09:00 Dose: Not Given Nicotine (Nicotine Inhaler*) 10 mg INH Q2H PRN PRN Reason: CRAVING Last Admin: 08/05/18 23:21 Dose: 10 mg Pharmacy Profile Note (Nicotine Patch Removal Note*) 1 note PATCH OFF 2100 [facility] Last Admin: 08/05/18 23:21 Dose: Not Given Quetiapine Fumarate (Seroquel Tab*) 50 mg PO DAILY [facility] Last Admin: 08/06/18 09:00 Dose: 50 mg Rivaroxaban (Xarelto(*)) 20 mg PO DAILY [facility] Last Admin: 08/06/18 09:00 Dose: 20 mg Thiamine HCl (Vitamin B-1 Tab*) 100 mg PO DAILY [facility] Last Admin: 08/06/18 08:59 Dose: 100 mg Vital Signs - 8 hr 08/06/18 08/06/18 08/06/18 10:06 12:09 14:29 Temperature 99.2 F 98.6 F 98.1 F Pulse Rate 89 87 88 Respiratory 20 20 20 Rate Blood Pressure 104/64 105/71 124/70 (mmHg) O2 Sat by Pulse 94 96 97 Oximetry Oxygen Devices in Use Now: None Appearance: NAD Eyes: PERRLA Ears/Nose/Mouth/Throat: Clear Oropharnyx, Mucous Membranes Moist Neck: NL Appearance and Movements; NL JVP Respiratory: Symmetrical Chest Expansion and Respiratory Effort, Clear to Auscultation Cardiovascular: NL Sounds; No Murmurs; No JVD, RRR, No Edema Abdominal: NL Sounds; No Tenderness; No Distention Lymphatic: No Cervical Adenopathy Extremities: No Edema Skin: No Rash or Ulcers Neurological: Alert and Oriented x 3, NL Muscle Strength and Tone Nutrition: Taking PO's Result Diagrams: 08/06/18 09:28 08/06/18 09:28 Additional Lab and Data: Lab Results Laboratory Results - last 24 hr 08/06/18 08/06/18 09:28 09:28 WBC 9.4 RBC 3.99 L Hgb 14.5 Hct 43 MCV 107 H MCH 36 H MCHC 34 RDW 14 Plt Count 171 MPV 7.7 Neut % (Auto) 61.6 Lymph % (Auto) 11.0 [place] % (Auto) 25.2 Eos % (Auto) 1.8 Baso % (Auto) 0.4 Absolute Neuts (auto) 5.8 Absolute Lymphs (auto) 1.0 Absolute Monos (auto) 2.4 H Absolute Eos (auto) 0.2 Absolute Basos (auto) 0 Absolute Nucleated RBC 0 Nucleated RBC % 0 Sodium 136 Potassium 3.7 Chloride 101 Carbon Dioxide 26 Anion Gap 9 BUN 8 Creatinine 0.70 Est GFR ( Amer) 142.7 Est GFR (Non-Af Amer) 118.0 BUN/Creatinine Ratio 11.4 Glucose 114 H Calcium 9.8 Magnesium 1.8 L Microbiology and Other Data: Microbiology 08/01/18 18:06 Blood Venous Aerobic Blood Culture - Preliminary No Growth Day 4 08/01/18 18:06 Blood Venous Anaerobic Blood Culture - Preliminary No Growth Day 4 08/01/18 16:30 Nasal Nasal Screen MRSA (PCR) - Final Mrsa Not Detected Assess/Plan/Problems-Billing Assessment: Mr Plata is a 53yo with PMH of Alcohol abuse, DVT/PE on Xarelto, who was admitted with alcohol withdrawal, initially requiring ICU stay for Precedex drip. - Patient Problems (1) Alcohol withdrawal Comment: - Last score on [facility] 08/05/18 at 1700, slightly tremulous. - Continue Ativan. - Psych consulted and we appreicate their assistance. They do not believe the patient has capacity to make his own medical decisions (2) Alcoholic hepatitis Comment: - Mild LFTs elevation, but improving - US shows hepatomegaly and steatosis. (3) H/O deep venous thrombosis Comment: - h/o recurrent DVT/PE - Dr Snider d/w PCP - had recurrence off Xarelto, needs lifelong AC. - At high risk of bleeding with alcohol abuse. - PT/OT consulting - Consider risk vs benefit, especially if he doesn't go to rehab. The risks of anticoagulation may outweight benefit. Patient will need close follow up if he remains on anticoagulation. Will discuss with family given patient's capacity status (4) Hypomagnesemia Comment: - Replete. (5) Wernicke-Korsakoff syndrome (alcoholic) Comment: - Suspect cognitive decline and nystagmus associated with Wernicke's - replete Thiamine. (6) Full code status Comment: - Inpatient. Attending: Zen Casey
[2018-08-06] MEDS: Melatonin 3 MG TAB PO SCH (20:26)
[2018-08-06] MEDS: Nicotine Inhaler* 10 MG AMP INH PRN (20:26)
[2018-08-06] MEDS: Nicotine Patch Removal NOTE PATCH OFF SCH (20:33)
[2018-08-07 08:03] LABS: Albumin 3.9 g/dL (3.2-5.2); Albumin/Globulin Ratio 1.1 (1-3); Calcium 9.9 mg/dL (8.6-10.3); EGFR African American 131.8 (>60); EGFR Non-African American 108.9 (>60); Globulin 3.6 g/dL (2-4); Magnesium 1.9 mg/dL (1.9-2.7); Potassium 4.1 mmol/L (3.5-5.0); Total Bilirubin 0.9 mg/dL (0.2-1.0); Total Protein 7.5 g/dL (6.4-8.9)
[2018-08-07] MEDS ORDERED: Magnesium Sulfate 2 GM IV* 2 GM/50 ML BAG IVPB ONE (08:26)
[2018-08-07] MEDS: Labetalol TAB* 100 MG PO SCH (09:10)
[2018-08-07] MEDS: QUEtiapine TAB* 25 MG PO SCH (09:10)
[2018-08-07] MEDS: Thiamine TAB* 100 MG TAB PO SCH (09:11)
[2018-08-07] MEDS: Folic Acid TAB* 1 MG PO SCH (09:11)
[2018-08-07] MEDS: Rivaroxaban TAB(*) 20 MG TAB PO SCH (09:11)
[2018-08-07] MEDS: Nicotine PATCH 14 MG/24 HR* PATCH TRANSDERM SCH (09:11)
[2018-08-07] MEDS: Multivitamins/Minerals TAB PO SCH (09:11)
[2018-08-07] MEDS: Nicotine Inhaler* 10 MG AMP INH PRN ×2 (17:50→20:25)
--- NOTE | 2018-08-07 17:50 | PN ---
Subjective Date of Service: 08/07/18 Interval History: Patient sitting in bed, watching TV on assessment. Alert and oriented x3. When asked about events leading up to admission patient reports he had a fall while in the kitchen and denies alcohol involvement. It should be mentioned that yesterday when same question was asked patient stated he feel on ice while walking a dog in a field. Patient denies chest pain, palpitations, nausea, vomiting, tremors, hallucinations, fever, chills, diarrhea, sob. Family History: Unchanged from Admission Social History: Unchanged from Admission Past Medical History: Unchanged from Admission Objective Active Medications: Acetaminophen (Tylenol Tab*) 650 mg PO Q4H PRN PRN Reason: PAIN Folic Acid (Folvite Tab*) 1 mg PO DAILY [facility] Last Admin: 08/07/18 09:11 Dose: 1 mg Haloperidol Lactate (Haldol Inj Iv/Im*) 5 mg IM Q6H PRN PRN Reason: AGITATION Last Admin: 08/04/18 19:48 Dose: 5 mg Labetalol HCl (Trandate Tab*) 100 mg PO DAILY [facility] Last Admin: 08/07/18 09:10 Dose: 100 mg Lorazepam (Ativan Inj*) 0 - 6 mg IV PUSH .PER [facility] PROTOCOL [facility]; Protocol Last Admin: 08/05/18 16:58 Dose: 2 mg Melatonin (Melatonin) 3 mg PO BEDTIME [facility] Last Admin: 08/06/18 20:26 Dose: 3 mg Multivitamins/Minerals (Theragran/Minerals Tab*) 1 tab PO DAILY [facility] Last Admin: 08/07/18 09:11 Dose: 1 tab Nicotine (Nicotine Patch 14 Mg/24 Hr*) 1 patch TRANSDERM DAILY [facility] Last Admin: 08/07/18 09:11 Dose: Not Given Nicotine (Nicotine Inhaler*) 10 mg INH Q2H PRN PRN Reason: CRAVING Last Admin: 08/06/18 20:26 Dose: 10 mg Pharmacy Profile Note (Nicotine Patch Removal Note*) 1 note PATCH OFF 2100 [facility] Last Admin: 08/06/18 20:33 Dose: Not Given Quetiapine Fumarate (Seroquel Tab*) 50 mg PO DAILY [facility] Last Admin: 08/07/18 09:10 Dose: 50 mg Rivaroxaban (Xarelto(*)) 20 mg PO DAILY [facility] Last Admin: 08/07/18 09:11 Dose: 20 mg Thiamine HCl (Vitamin B-1 Tab*) 100 mg PO DAILY [facility] Last Admin: 08/07/18 09:11 Dose: 100 mg Vital Signs - 8 hr 08/07/18 08/07/18 11:05 15:23 Temperature 98.2 F 98.9 F Pulse Rate 83 88 Respiratory 18 18 Rate Blood Pressure 120/74 125/79 (mmHg) O2 Sat by Pulse 97 98 Oximetry Oxygen Devices in Use Now: None Appearance: Comfortable, NAD Eyes: No Scleral Icterus Ears/Nose/Mouth/Throat: Clear Oropharnyx, Mucous Membranes Moist Neck: NL Appearance and Movements; NL JVP Respiratory: Symmetrical Chest Expansion and Respiratory Effort, Clear to Auscultation Cardiovascular: NL Sounds; No Murmurs; No JVD, RRR, No Edema Abdominal: NL Sounds; No Tenderness; No Distention Lymphatic: No Cervical Adenopathy Extremities: No Clubbing, Cyanosis Skin: No Rash or Ulcers Neurological: Alert and Oriented x 3, NL Muscle Strength and Tone, - - Cranial nerves and coordination intact. No drift. Nutrition: Taking PO's Result Diagrams: 08/06/18 09:28 08/07/18 07:39 Additional Lab and Data: Laboratory Results - last 24 hr 08/07/18 07:39 Sodium 135 Potassium 4.1 Chloride 102 Carbon Dioxide 25 Anion Gap 8 BUN 9 Creatinine 0.75 Est GFR ( Amer) 131.8 Est GFR (Non-Af Amer) 108.9 BUN/Creatinine Ratio 12.0 Glucose 114 H Calcium 9.9 Magnesium 1.9 Total Bilirubin 0.90 AST 26 ALT 30 Alkaline Phosphatase 89 Total Protein 7.5 Albumin 3.9 Globulin 3.6 Albumin/Globulin Ratio 1.1 Microbiology and Other Data: Microbiology 08/01/18 18:06 Blood Venous Aerobic Blood Culture - Final No Growth Day 5 08/01/18 18:06 Blood Venous Anaerobic Blood Culture - Final No Growth Day 5 08/01/18 16:30 Nasal Nasal Screen MRSA (PCR) - Final Mrsa Not Detected Assess/Plan/Problems-Billing Assessment: Mr Plata is a 53yo with PMH of Alcohol abuse, DVT/PE on Xarelto, who was admitted with alcohol withdrawal, initially requiring ICU stay for Precedex drip. - Patient Problems (1) Alcohol withdrawal Comment: - Last score on [facility] 2/17/19 at 1700, slightly tremulous. - Continue Ativan prn - Psych consulted and we appreicate their assistance. They do not believe the patient has capacity to make his own medical decisions (2) Alcoholic hepatitis Comment: - Mild LFTs elevation, but improved - US shows hepatomegaly and steatosis. (3) H/O deep venous thrombosis Comment: - h/o recurrent DVT/PE - Dr Snider d/w PCP - had recurrence off Xarelto, needs lifelong AC. - At high risk of bleeding with alcohol abuse. - PT/OT consulting - Consider risk vs benefit, especially if he doesn't go to rehab. The risks of anticoagulation may outweight benefit. Patient will need close follow up if he remains on anticoagulation. Will discuss with family given patient's capacity status (4) Hypomagnesemia Comment: - Replete. (5) Wernicke-Korsakoff syndrome (alcoholic) Comment: - Suspect cognitive decline and nystagmus associated with Wernicke's - replete Thiamine. (6) Full code status Comment: - Inpatient. Attending: Ean Ling
[2018-08-07] MEDS: Melatonin 3 MG TAB PO SCH (20:26)
[2018-08-07] MEDS: Nicotine Patch Removal NOTE PATCH OFF SCH (20:27)
[2018-08-08 07:37] VITALS: BP 127/79
[2018-08-08] MEDS: QUEtiapine TAB* 25 MG PO SCH (08:03)
[2018-08-08] MEDS: Folic Acid TAB* 1 MG PO SCH (08:04)
[2018-08-08] MEDS: Rivaroxaban TAB(*) 20 MG TAB PO SCH (08:05)
[2018-08-08] MEDS: Thiamine TAB* 100 MG TAB PO SCH (08:05)
[2018-08-08] MEDS: Multivitamins/Minerals TAB PO SCH (08:05)
[2018-08-08] MEDS: Labetalol TAB* 100 MG PO SCH (08:05)
[2018-08-08] MEDS: Nicotine PATCH 14 MG/24 HR* PATCH TRANSDERM SCH (08:09)
--- NOTE | 2018-08-08 21:37 | DS ---
CC: Dr. Silverio; Elton Chanel NP.* DISCHARGE SUMMARY: DATE OF ADMISSION: 08/01/18. DATE OF DISCHARGE: 08/08/18. PRIMARY CARE PROVIDERS: Dr. Silverio and Elton Chanel NP. ATTENDING PHYSICIAN: Dr. Bill Gtz * (dictated by Magda Justice NP). PRIMARY DIAGNOSES: 1. Alcohol withdrawal. 2. Alcoholic hepatitis. 3. Hypomagnesemia. 4. Wernicke-Korsakoff syndrome (alcoholic). SECONDARY DIAGNOSES: 1. Hypertension. 2. History of pulmonary embolism. 3. History of deep venous thrombosis. CONSULTATIONS WHILE IN THE HOSPITAL: Dr. Jaime, Psychiatry. PROCEDURES DONE WHILE IN THE HOSPITAL: No procedures. STUDIES DONE WHILE IN THE HOSPITAL: 1. Chest x-ray. Impression: Hyperinflation, consistent with COPD. No active cardiopulmonary disease. 2. Liver ultrasound. Impression: Cholelithiasis without evidence of biliary duct dilatation, hepatomegaly and hepatic steatosis. DISCHARGE HOME MEDICATIONS: New home medications: 1. Folic acid 1 mg orally every day. 2. Melatonin 3 mg orally at bedtime. 3. Nicotine patch 14 mg over 24 hours. 4. Seroquel 50 mg orally every day. 5. Thiamine 100 mg orally every day. Continued home medications: 1. Xarelto 20 mg every day. 2. Labetalol 100 mg orally every day. Discontinued home medications: 1. Lasix. 2. Lisinopril. HISTORY OF PRESENT ILLNESS/HOSPITAL COURSE: Mr. Plata is a 53-year-old male with past medical history significant for hypertension, PE, DVT, who is on Xarelto and who drinks regularly; who presented to the emergency room on with acute alcohol withdrawal after stopping drinking 2 days prior. For further details of the events leading up to the patient's admission, please see history and physical dictated by Dr. Del Angel, but in short, the patient was admitted to the ICU for further stabilization. He initially required a Precedex drip for agitation and due to the patient's alcohol abuse, he was also started on multivitamins, and folate and thiamine. He was also given melatonin for sleep. The patient stabilized while in the emergency room and was discharged to the medical floor where he remained on a [place] protocol receiving Ativan as needed. The patient's last dose of Ativan was 08/07/18. In the meantime, there was discussion of need of subacute rehab versus alcohol rehab. The subacute rehab was considered due to the patient's weakness and unstable gait. This did improve as the patient improved. As for alcohol rehab, the patient initially refused treatment, but there was concern the patient did not fully understand the extent of his illness. Due to these concerns, Psych was consulted and determined that the patient did not have capacity. Therefore, the patient's surrogate decision maker, his sister, made the decision that he would be attending inpatient rehab. The patient has been admitted to inpatient rehab and will be discharged to his sister today to be driven to the facility. The patient is stable for discharge today. Vital Signs: Temperature 98.1, HR 84, RR 16, O2 saturation 96% on room air, BP 127/79. REVIEW OF SYSTEMS: A 14-point of review of systems was completed and all were negative. PHYSICAL EXAMINATION: Mr. Plata is a 53-year-old male who is observed ambulating in the hallway with a walker and steady gait. He appears in no acute distress. Appears stated age. HEENT: EOM's intact. PERRLA. Oral mucosa is moist without lesions. Posterior pharynx is clear. Neck: Supple. No lymphadenopathy. Respiratory: Lungs are clear. No wheezes, rubs, rhonchi. Good aeration. Cardiac: S1, S2 present. Regular rate and rhythm. No murmurs, rubs, or gallops. Abdomen: Soft, nontender. Bowel sounds x4. Extremities: No edema. No clubbing or cyanosis. No pain or deformities. Neuro: No focal deficits or weakness. Strength is 5/5 throughout. Skin is intact. LABORATORY DATA: WBC 9.4, hemoglobin 14.5, hematocrit 43, platelets 171,000. Sodium 135, potassium 4.1, chloride 102, carbon dioxide 25, BUN 9, creatinine 0.75, glucose 114, magnesium 1.9. DISCHARGE PLAN/FOLLOWUP: 1. Alcohol withdrawal. As previously mentioned, the patient will be admitted to inpatient rehab facility today. He is being transported there by his sister. The patient has not exhibited signs of withdrawal since 08/05/18. 2. Alcohol hepatitis. Initially, the patient's LFTs were elevated but this has improved. Ultrasound did show hepatomegaly and steatosis. The patient is to follow up with his primary care for further evaluation as needed. 3. History of deep vein thrombosis. The patient has a history of recurrent deep venous thrombosis/pulmonary embolism. Therefore, he needs lifelong anticoagulation. I discussed the risks of bleeding with his alcohol use with his sister. Since the patient is going to rehab with hopes of abstaining from alcohol, his sister believes that he should remain on anticoagulation despite the risks because currently the benefits do outweigh the risks. Therefore, the patient will continue Xarelto. 4. Hypomagnesemia. This was repleted. I would encourage the patient to take over- the-counter magnesium oxide occasionally due to electrolyte imbalance secondary to alcoholism. 5. Wernicke-Korsakoff syndrome. Due to suspected nystagmus, the patient was given thiamine. The patient is to follow up with his primary care regarding this. He and his primary care can decide whether or not it is necessary for the patient to follow up with Neurology. 6. Hypertension. As mentioned above, the patient is to continue his labetalol 100 mg p.o. daily. I have temporarily discontinued his Lasix and lisinopril as his blood pressures have been soft while inpatient with ranging from the low 100s systolically to 120 systolically. I suspect this is due to patient not consuming alcohol. Therefore, he should follow up with his primary care provider after his stay at the inpatient rehab facility for further evaluation. If the patient is hypertensive at that point, then it would be necessary to restart his medications, but due to the patient's current status, I have held them. 7. Education: The patient and family were educated on signs and symptoms of new or worsening condition and when to return to the emergency department. Both stated understanding. PLAN: This plan was discussed with my attending, Dr. Bill Gtz, who agrees with my plan. TIME SPENT: Approximately 45 minutes were spent on this discharge, greater than half that time was spent [id number] with the patient discussing discharge plan and instructions. MAGDA JUSTICE, JEROMY [id number]/[facility] #: [id number] BLAINE
== END 2018-08-08 12:35 | DRG 775 ==
LOC: ED 12:51 → ICU 14:41 → MEDTELE 08-03 23:59 → MED 08-05 17:30
PROVIDERS: ADMIT Internal Medicine Critical Care Medicine; ATTEND Internal Medicine
DX: F10.231 Alcohol dependence with withdrawal delirium (principal); I10 Essential (primary) hypertension; R40.2362 Coma scale, best motor response, obeys commands, at arrival to emergency department; R40.2142 Coma scale, eyes open, spontaneous, at arrival to emergency department; R00.0 Tachycardia, unspecified; E83.42 Hypomagnesemia; E87.6 Hypokalemia; K70.30 Alcoholic cirrhosis of liver without ascites; R79.1 Abnormal coagulation profile; F17.210 Nicotine dependence, cigarettes, uncomplicated; D69.6 Thrombocytopenia, unspecified; R40.2252 Coma scale, best verbal response, oriented, at arrival to emergency department; J44.9 Chronic obstructive pulmonary disease, unspecified; K80.20 Calculus of gallbladder without cholecystitis without obstruction; K76.0 Fatty (change of) liver, not elsewhere classified; H55.00 Unspecified nystagmus; F10.259 Alcohol dependence with alcohol-induced psychotic disorder, unspecified; Y90.9 Presence of alcohol in blood, level not specified; Z86.711 Personal history of pulmonary embolism; Z86.718 Personal history of other venous thrombosis and embolism; Z80.9 Family history of malignant neoplasm, unspecified; Z82.0 Family history of epilepsy and other diseases of the nervous system; Z79.01 Long term (current) use of anticoagulants
CPT/HCPCS: 36415; 71046; 76705; 80048; 80053; 80074; 80320; 81003; 83605; 83735; 83880; 84100; 84443; 84484; 85025; 85060; 85610; 87040; 87641; 93005; 99285; A9270-GY; G0480; G8987-GO-CK; G8988-GO-CI; J0610; J1630; J2060; J3411; J3475; J3480

== ENCOUNTER 2019-03-19 16:07 | Emergency (ER) | payer BC, OTHER ==
--- OUTSIDE RECORDS SUMMARY | 2019-03-19 16:14 | XMS REPORT | Continuity of Care Document ---
:1965 External Reference #:[id number] Author Name Elton Chanel NP (transmitted by agent of provider Diane Richter) Address [address], [place] [address] Care Team Providers Name Role Phone Gordy Gonsalez MD - Urology Care Team Information [facility] [phone] [facility] [place] Care Team Information [facility] - Physical Therapy Caitlin Lerner MD - Internal Medicine Care Team Information [facility] Problems Active Problems Provider Date Pulmonary embolism Daljit Ortega M.D. Onset: 07/03/2014 Low back pain Daljit Ortega M.D. Onset: 07/03/2014 Raised prostate specific antigen Daljit Ortega M.D. Onset: 07/18/2014 Tobacco user Daljit Ortega M.D. Onset: 09/26/2014 Deep venous thrombosis of lower Parker Arias M.D.,FAC Onset: 2017 extremity Note: bilat Alcohol abuse Parker Arias M.D.,FACP Onset: 10/25/2017 Essential hypertension Daljit Ortega M.D. Onset: 12/07/2017 Lymphedema Daljit Ortega M.D. Onset: 02/12/2018 O/E - nervous Jenna Stover N.P. Onset: 02/01/2018 Social History Type Date Description Comments Sex Unknown Tobacco Use Start: Unknown current cigarette smoker Smoking Status Reviewed: 02/08/19 current cigarette smoker ETOH Use Denies alcohol use Quit drinking August 2017, Went to [facility] Tobacco Use Start: Unknown Patient is a current smoker, smokes every day Recreational Drug Use Denies Drug Use Allergies, Adverse Reactions, Alerts Description No Known Drug Allergies Medications Active Medications SIG Qnty Indications Ordering Provider Date Labetalol HCL 1 by mouth 60tabs I10 Elton Chanel NP 02/07/2018 100mg twice daily Tablets Xarelto 1 by mouth 30tabs Elton Chanel NP 09/24/2014 20mg Tablets every day History Medications Lisinopril 1 by mouth every 30tabs Elton Chanel NP 09/17/2018 - 10mg Tablets day 01/04/2019 Immunizations CPT Code Status Date Vaccine Reaction Lot # [id number] Given 12/07/2017 Pneumonia Vaccine Pt. tolerated well. No imediate [id number] reaction noted. Vital Signs Date Vital Result Comment 02/08/2019 10:18am Height 73 inches 6'1" Weight 198.00 lb Heart Rate 75 /min BP Systolic 105 mmHg BP Diastolic 70 mmHg Body Temperature 97.7 F O2 % BldC Oximetry 94 % BMI (Body Mass Index) 26.1 kg/m2 01/04/2019 11:06am Height 73 inches 6'1" Weight 198.38 lb Heart Rate 85 /min BP Systolic 159 mmHg BP Diastolic 100 mmHg BP Systolic Recheck 150 mmHg BP Diastolic Recheck 102 mmHg Body Temperature 97.9 F O2 % BldC Oximetry 98 % BMI (Body Mass Index) 26.2 kg/m2 Results Description No Information Available Procedures Date Code Description Status 06/19/2013 [id number] Colonoscopy Completed Medical Devices Description No Information Available Encounters Type Date Location Provider Dx Diagnosis Office Visit 01/04/2019 [facility] Elton Chanel NP I10 Essential (primary ) 10:40a [facility] hypertension Office Visit 09/17/2018 [facility] Elton Chanel NP I10 Essential (primary ) 2:00p [facility] hypertension Assessments Date Code Description Provider 02/08/2019 I10 Essential (primary) hypertension Elton Chanel NP 01/04/2019 I10 Essential (primary) hypertension Elton Chanel NP 09/17/2018 I10 Essential (primary) hypertension Elton Chanel NP Plan of Treatment Future Appointment(s):08/09/2019 9:20 am - Elton Chanel NP at [facility] Internal [facility]02/08/2019 - Elton Chanel NPI10 Essential (primary) hypertensionComments:HYPERTENSION:Well controlled on current regimen. Continue present management. Please have the fasting bloodwork done soon.Follow up:6 months Functional Status Description No Information Available Mental Status Description No Information Available Referrals Description No Information Available
[2019-03-19 16:31] VITALS: BP 164/110
--- NOTE | 2019-03-19 16:41 | UC ---
Hand/Wrist HPI - HPI Summary HPI Summary: 53 yo, right hand dominant, male presents with LEFT wrist pain. He tells me that today he was walking and his shoelace was undone - he tripped over this and landed with his hands outstretched. Since that time has had pain in his left wrist. He has not taken anything OTC for his symptoms. Denies numbness or tingling. His BP is elevated today. He has a hx of HTN. Denies headache, dizziness, vision changes, numbness, tingling, weakness, SOB, chest pain, n/v. - History Of Current Complaint Chief Complaint: UCUpperExtremity Stated Complaint: ARM INJURY Time Seen by Provider: 03/19/19 16:41 Hx Obtained From: Patient Onset/Duration: Sudden Onset Severity Initially: Severe Severity Currently: Moderate Pain Intensity: 8 Pain Scale Used: 0-10 Numeric - Allergies/Home Medications Allergies/Adverse Reactions: Allergies Allergy/AdvReac Type Severity Reaction Status Date / Time No Known Allergies Allergy Verified 02/01/18 07:59 Home Medications: Home Medications Labetalol TAB* [Trandate TAB*] 100 mg PO BID 03/19/19 [History Confirmed ] PMH/Surg Hx/FS Hx/Imm Hx - Additional Past Medical History Additional PMH: DVT Cardiovascular History: Hypertension - Surgical History Surgical History: Yes Surgery Procedure, Year, and Place: L leg surgery - Family History Known Family History: Negative: Renal Disease - Social History Occupation: Employed Full-time Lives: With Family Alcohol Use: Weekly Alcohol Amount: weekends Substance Use Type: None Smoking Status (MU): Heavy Every Day Tobacco Smoker Type: Cigarettes Amount Used/How Often: 1 pack/day Have You Smoked in the Last Year: Yes - Immunization History Most Recent Influenza Vaccination: 2018 fall Most Recent Tetanus Shot: UNSURE Most Recent Pneumonia Vaccination: NEVER Review of Systems All Other Systems Reviewed And Are Negative: No Constitutional: Positive: Negative Skin: Positive: Negative Respiratory: Positive: Negative Cardiovascular: Positive: Negative Neurovascular: Positive: Negative Musculoskeletal: Positive: Other: - Left wrist pain Neurological: Positive: Negative Psychological: Positive: Negative Physical Exam - Summary Physical Exam Summary: GENERAL: NAD. WDWN. No pain distress. SKIN: No rashes, sores, lesions, or open wounds. CHEST: No accessory muscle use. Breathing comfortably and in no distress. CV: Pulses intact radial and ulnar. Cap refill <2seconds MSK: LEFT WRIST: Mild TTP about radial aspect. Pain with flexion and extension. Mild edema. No obvious bony deformities. No snuffbox tenderness. LEFT ELBOW: FROM NTTP NEURO: Alert. Sensations intact hand and all fingers. PSYCH: Age appropriate behavior. Triage Information Reviewed: Yes Vital Signs: Initial Vital Signs Temp 99.6 F 03/19/19 16:21 Pulse 87 03/19/19 16:21 Resp 18 03/19/19 16:21 BP 170/108 03/19/19 16:21 Pulse Ox 96 03/19/19 16:21 Vital Signs Reviewed: Yes Diagnostics - Radiology Left wrist/elbow Radiology Interpretation Completed By: Radiologist Summary of Radiographic Findings: IMPRESSION: 1. Small to moderate left elbow joint effusion without identification of a definite fracture. 2. Suspicion for nondisplaced fracture of the dorsal distal left radius. If clinically warranted superior imaging can be acquired with either CT or MR. Hand/Wrist Course/Dx - Course Course Of Treatment: XR as above. Low suspicion for elbow fracture as pt has no tenderness and has FROM without pain. Higher suspicion for radial fracture given his degree of pain and exam findings here. He was placed in a cock-up splint and advised to RICE and f/u with Orthopedics for further treatment - Differential Dx/Diagnosis Provider Diagnosis: Radial fracture Discharge ED - Sign-Out/Discharge Documenting (check all that apply): Patient Departure All imaging exams completed and their final reports reviewed: Yes - Discharge Plan Condition: Stable Disposition: HOME Patient Education Materials: Wrist Fracture in Adults (ED) Referrals: Elton Chanel NP [Primary Care Provider] - Gilmer oRck MD [Medical Doctor] - As Soon As Possible Additional Instructions: If you develop a fever, shortness of breath, chest pain, new or worsening symptoms - please call your PCP or go to the ED immediately. Your blood pressure was high at todays visit. Please see your primary provider within 4 weeks for recheck and re-evaluation. 1) Rest, Ice, and elevate your wrist intermittently throughout the day to decrease pain and swelling 2) Use the wrist brace as much as possible 3) I recommend that you call Orthopedics at the number below to schedule a follow up appointment within 1 week for a recheck - Billing Disposition and Condition Condition: STABLE Disposition: Home
== END 2019-03-19 18:14 | disposition home or self-care (01) ==
LOC: UCEAST 16:07
DX: S52.592A Other fractures of lower end of left radius, initial encounter for closed fracture (principal); I10 Essential (primary) hypertension; M25.422 Effusion, left elbow; F17.210 Nicotine dependence, cigarettes, uncomplicated; W01.0XXA Fall on same level from slipping, tripping and stumbling without subsequent striking against object, initial encounter; Y92.9 Unspecified place or not applicable
CPT/HCPCS: 99212; G0463